=== PATIENT | female | born 1970 | race Caucasian/White ===

== ENCOUNTER 2016-05-24 20:24 | Inpatient (IN) | payer MEDICAID, OTHER ==
[~2016-05-24] VITALS: Ht 157.5 cm; Wt 51.7 kg
[~2016-05-24 20:24] MED LIST: CIPRO500 M1 PO; ENTERIC ASPIRI325 MG PO; FLAGYL500 M1 PO; LIPITOR40 MG PO; NORCO 325 MG-51 TAB PO; PAROXETINE20 M1 PO; PERCOCET 5/3251 TAB PO; PLAVIX75 MG PO; REGLAN10 MG PO; ZESTRIL20 M1 PO
[2016-05-24 20:47] VITALS: BP 107/76
--- NOTE | 2016-05-24 23:51 | NUR ---
TO ER BED 6
[2016-05-25] MEDS ORDERED: NACL 0.9% 1,000 ML IV ONE (00:22)
[2016-05-25] MEDS ORDERED: ONDANSETRON 4 MG/2 ML VIAL IVP ONE (00:25)
[2016-05-25] MEDS ORDERED: fentaNYL 0.05 MG/ML VIAL IVP ONE ×2 (00:25→02:40)
--- NOTE | 2016-05-25 00:37 | NUR ---
45Y F BIB SPOUSE C/O OF VAGINAL PAIN, W/ WHITE DISCHARGE STARTED YESTERDAY. ACCOMPANIED BY N/V. NO S/S OF RESP DISTRESS NOTED AT THIS MOMENT.
--- NOTE | 2016-05-25 00:58 | NUR ---
PT TAKEN TO CT SCAN
[2016-05-25] MEDS: NACL 0.9% 1,000 ML IV SCH ×3 (02:52→23:16)
[2016-05-25] MEDS ORDERED: ONDANSETRON 4 MG/2 ML VIAL IVP PRN (02:55)
[2016-05-25] MEDS ORDERED: ACETAMINOPHEN 325 MG TAB PO PRN (02:55)
[2016-05-25] MEDS ORDERED: diphenhydrAMINE 50 MG/ML VIAL IVP ONE (03:30)
--- NOTE | 2016-05-25 04:23 | NUR ---
Patient will be admitted to care of DR OWENS. Admited to TELEMETRY. Will go to room 115. Belongings list completed. Report to MINGO PEREZ.
[2016-05-25 04:33] VITALS: BP 129/76
--- NOTE | 2016-05-25 04:33 | NUR ---
PT VSS AT THIS TIME.
--- NOTE | 2016-05-25 04:42 | NUR ---
PT TRASFERRED TO MED SURG ROOM 115, BY MINGO PEREZ. PT STABLE, WITH VSS UPON TRASFER.
--- NOTE | 2016-05-25 04:45 | NUR ---
RECEIVED PT ONTO UNIT IN ROOM 115, PLACED PT ON ISOLATION FOR HX C.DIFF. PT IS A/O X4, NO ACUTE S/S OF DISTRESS. C.O. OF VAGINAL/PELVIC AND LOWER ABDOMINAL PAIN FOR 1 DAY WITH N/V. VSS. PT IS AFEBRILE, DENIES N/V AND OR CHEST PAIN AT THIS TIME. IV ACCESS TO LEFT FA #22G, PATENT AND INTACT W/ NS @100CC/HR. PT STATES TO HAVE PAIN AT THIS TIME, WILL SEE ORDERS. LUNG SOUNDS ARE CLEAR. PT HAS COLOSTOMY BAG IN PLACE AND INTACT NO DRAINAGE OR BOWEL MOVEMENT NOTED TO LEFT LOWER QUADRANT. ALL OTHER SKIN INTACT. DISCUSSED W/ PT PLAN OF CARE, VERBALIZED UNDERSTANDING. CALL LIGHT PLACED WITHIN EASY REACH. ORIENTED PT TO UNIT. WILL CONTINUE TO MONITOR PT.
[2016-05-25] MEDS: HYDROmorphone 1 MG/ML AMP IVP PRN ×5 (05:58→22:49)
--- NOTE | 2016-05-25 07:15 | NUR ---
STARTED NEW IV TO RT FA #22G, DISCONTINUED IV ACCESS TO LEFT FA DUE TO PT C.O. PAIN AT SITE. NO REDNESS OR SWELLING NOTED. CANNULA INTACT. PT REMAINS STABLE.
--- NOTE | 2016-05-25 07:30 | NUR ---
ENDORSED PT TO IAM AGUILA FOR CONTINUITY OF CARE, PT STABLE.
--- NOTE | 2016-05-25 07:31 | NUR ---
RECEIVED REPORT FROM NIGHT RN. PT RESTING IN BED. AAOX4. NO S/S OF ACUTE DISTRESS. PT DENIES PAIN. IV SITE PATENT AND INTACT. CALL LIGHT WITHIN REACH. SAFETY MEASURES ENSURED. WILL CONTINUE TO MONITOR.
[2016-05-25 07:50] VITALS: BP 125/79
[2016-05-25] MEDS: ENOXAPARIN 30 MG/0.3 ML SYR SUBQ SCH (08:40)
--- NOTE | 2016-05-25 10:01 | NUR ---
PT RESTING IN BED. NO S/S OF ACUTE DISTRESS. PT STATES PAIN /10. MEDICATED ORDERED. CALL LIGHT WITHIN REACH. WILL CONTINUE TO MONITOR.
--- NOTE | 2016-05-25 10:03 | NUR ---
PATIENT HAS BEEN SCREENED AND CATEGORIZED HIGH NUTRITION RISK. PATIENT WILL BE SEEN WITHIN 1-2 DAYS OF ADMISSION. 05/25/16-05/26/[address]
--- NOTE | 2016-05-25 12:04 | NUR ---
PT RESTING IN BED. NO S/S OF ACUTE DISTRESS. PT STATES PAIN IS REDUCED AND TOLERABLE. CALL LIGHT WITHIN REACH. SAFETY MEASURES ENSURED. WILL CONTINUE TO MONITOR.
--- NOTE | 2016-05-25 12:44 | NUR ---
CM NOTE PER [facility]OST PH# [phone], SEND REVIEWS TO [facility]. INITIAL REVIEW SENT TO [facility] FAX# [phone] ATTN: ANNAMARIE PH# [phone] EXT [phone]
--- NOTE | 2016-05-25 14:24 | NUR ---
PT RESTING IN BED. NO S/S OF ACUTE DISTRESS. PT STATES PAIN IS DECREASED AND TOLERABLE. CALL LIGHT WITHIN REACH. WILL CONTINUE TO MONITOR.
[2016-05-25 16:00] VITALS: BP 98/75
--- NOTE | 2016-05-25 17:30 | NUR ---
PT RESTING IN BED. NO S/S OF ACUTE DISTRESS. PT DENIES PAIN. CALL LIGHT WITHIN REACH. WILL CONTINUE TO MONITOR.
--- NOTE | 2016-05-25 19:30 | NUR ---
RECEIVED REPORT FROM DAY RN AT BEDSIDE, PATIENT IS AAOX4. PATIENT IS AMBULATORY. ON ROOM AIR, NO SOB OR SIGN OF DISTRESS. PATIENT HAS IV TO LFA #22 PATENT INTACT AND ASYMPTOMATIC. NOTED PATIENT HAS COLOSTOMY BAG TO LOWER LQ. SAFETY MEASURES CHECKED. DISCUSSED PLAN OF CARE WITH PATIENT, PATIENT VERBALIZED UNDERSTANDING, CALL LIGHT WITHIN REACH. WILL CONTINUE TO MONITOR.
--- NOTE | 2016-05-25 19:38 | NUR ---
ENDORSED PLAN OF CARE TO NIGHT RN. PT REMAINS IN STABLE CONDITION.
[2016-05-25 20:00] VITALS: BP 126/75
--- NOTE | 2016-05-25 21:30 | NUR ---
PATIENT SITTING UP IN BED, NO SIGN OF DISTRESS, CALL LIGHT WITHIN REACH. WILL CONTINUE TO MONITOR.
--- NOTE | 2016-05-25 23:00 | NUR ---
PATIENT C/O PAIN IN ABDOMEN, ADMINISTERED DILAUDED PER MD CHAPMAN, PATIENT TOLERATED WELL, CALL LIGHT WITHIN REACH. WILL CONTINUE TO MONITOR.
--- NOTE | 2016-05-26 00:20 | NUR ---
PATIENT RESTING IN BED ON PHONE, PROVIDED PATIENT WITH JELL0 AND ICE CHIPS, WILL CONTINUE TO MONITOR.
--- NOTE | 2016-05-26 02:09 | NUR ---
PATIENT SLEEPING, NO SOB OR SIGN OF DISTRESS, CALL LIGHT WITHIN REACH. WILL CONTINUE TO MONITOR.
[2016-05-26 04:00] VITALS: BP 127/77
--- NOTE | 2016-05-26 04:30 | NUR ---
PATIENT SLEEPING, VITAL SIGNS STABLE, NO SOB OR SIGN OF DISTRESS, CALL LIGHT WITHIN REACH. WILL CONTINUE TO MONITOR.
[2016-05-26] MEDS: HYDROmorphone 1 MG/ML AMP IVP PRN ×5 (05:56→21:33)
--- NOTE | 2016-05-26 07:20 | NUR ---
ENDORSED PATIENT TO DAY RN AT BEDSIDE, PATIENT IN STABLE CONDITION
--- NOTE | 2016-05-26 07:21 | NUR ---
RECEIVED REPORT AT BEDSIDE FOR CONTINUITY OF CARE. PT IS ALERT AND ORIENTED. I INTRODUCED MYSELF AND UPDATED THE BOARD. PT HAS BEEN HERE BEFORE, I HAD TAKEN CARE OF HER. SHE STATED HER CANCER IS BACK AND IS CURRENTLY ON CHEMO AND SHE HAS BEEN IN AND OUT OF THE HOSPITAL. PT HAS NO COMPLAINTS AT THIS TIME. PT IS MS. PT'S SKIN IS INTACT EXCEPT THE COLOSTOMY BAG ON HE L QUAD OF ABD. PT'S IV IS R FA 22G, NS AT 100ML. IT IS INTACT AND DRY AND PATENT. WILL BE BACK TO ASSESS PT FURTHER. CALL LIGHT WITHIN REACH. ALL SAFETY MEASURES IN PLACE.
--- NOTE | 2016-05-26 07:45 | NUR ---
V/S WITHIN NORMAL RANGE. SHE DID EXPLAIN THAT SHE HAD MENTIONED TO THE CLAIMS ADJUSTER NURSE ABOUT SWITCHING HER BENADRYL TO IV INSTEAD OF PO. IT WORKS BETTER AND FASTER FOR HER SIDE EFFECT OF CHEMO. WHEN DR. JUAN COMES, I WILL ASK. WILL BE BACK TO CHECK ON PT AND BRING HER MORNING MEDS. ALL SAFETY MEASURES IN PLACE.
[2016-05-26] MEDS: NACL 0.9% 1,000 ML IV SCH ×3 (08:52→22:15)
[2016-05-26] MEDS: ENOXAPARIN 30 MG/0.3 ML SYR SUBQ SCH (08:56)
--- NOTE | 2016-05-26 09:02 | NUR ---
ADMINISTERED MORNING MEDS. PT TOLERATED WELL. NO OTHER COMPLAINTS. CALL LIGHT WITHIN REACH. WILL CONTINUE TO MONITOR PT.
--- NOTE | 2016-05-26 10:05 | NUR ---
PT IS DOING WELL. RESTING COMFORTABLY. COLORING. NO PAIN AT THIS TIME. ALL SAFETY MEASURES IN PLACE. WILL CONTINUE TO MONITOR PT.
--- NOTE | 2016-05-26 11:05 | NUR ---
CM NOTE CONCURRENT REVIEW SENT TO [facility] FAX# [phone] ATTN: ANNAMARIE # [phone] EXT [phone]
--- NOTE | 2016-05-26 11:47 | NUR ---
ADMINISTERED ZOFRAN FOR NAUSEA. PT TOLERATED WELL. WILL CONTINUE TO MONITOR PT.
--- NOTE | 2016-05-26 12:16 | NUR ---
05/26/16 RD INITIAL ASSESSMENT COMPLETED PLEASE REFER TO NUTRITION ASSESSMENT UNDER CARE ACTIVITY FOR ESTIMATED NUTRITIONAL NEEDS. RD RECOMMENDATIONS: 1. CONTINUE CLEAR LIQUID DIET TOLERATED PER MD 2. WHEN MEDICALLY APPROPRIATE CONSIDER ADVANCE DIET TOLERATED TO SOFT AND IF PT CONTINUES TO TOLERATE DIET, CONSIDER REGULAR DIET. 3. RD WILL F/U 3-5 DAYS; MODERATE RISK. JUAN MANUEL RAMOS RD
--- NOTE | 2016-05-26 13:26 | NUR ---
ADMINISTERED DILAUDID FOR PAIN. PAIN LEVEL IS 9/10. PT TOLERATED WELL. WILL FOLLOW UP REGARDING SADE AND DR. WILL CONSULT.
--- NOTE | 2016-05-26 14:10 | NUR ---
SPOKE TO DR. WILL REGARDING CONSULT. STATED THAT HE WILL BE IN SOON TO SEE HER.
[2016-05-26] MEDS: diphenhydrAMINE 50 MG/ML VIAL IVP PRN ×2 (15:07→21:07)
[2016-05-26 16:00] VITALS: BP 100/64
--- NOTE | 2016-05-26 16:00 | NUR ---
V/S WITHIN NORMAL RANGE. PT IS RESTING, WATCHING TV. NO COMPLAINTS AT THIS TIME. WILL CONTINUE TO MONITOR PT.
--- NOTE | 2016-05-26 17:30 | NUR ---
ADMINISTERED HER PAIN MEDS. PT TOLERATED WELL. PT'S NEW IV IS IN HER L HAND 22G. FLUSHED AND ADMINISTERED HER IV INFUSION. DINNER IS HERE. PLACED HER CLEAR LIQUID DIET TRAY ON TABLE. ALL SAFETY MEASURES IN PLACE. WILL CONTINUE TO MONITOR PT.
--- NOTE | 2016-05-26 19:10 | NUR ---
ENDORSED PT TO THE CONSULTING PRACTICE MANAGER NURSE AT BEDSIDE FOR CONTINUITY OF CARE. PT IS IN GOOD SPIRITS. NO COMPLAINTS. NO SIGNS OF DISTRESS.
--- NOTE | 2016-05-26 19:28 | NUR ---
RECEIVED REPORT FROM MINGO ALEMAN, AT BEDSIDE. INITIAL ASSESSMENT AND BODY CHECK DONE. PATIENT AAO X 4, ABLE TO FOLLOW COMMAND AND MAKE NEEDS KNOWN AND AMBULATORY BY SELF WITH STEADY GAIT. PATIENT CURRENTLY SITING UP ON THE BED AND TALKING TO FAMILY. NO S/S OF DISTRESS OR SOB NOTED. PATIENT STILL C/O ABDOMINAL PAIN AND ITCHING AT THIS TIME. SKIN WARM/DRY TO TOUCH AND INTACT. NOTED PATIENT HAS LT SIDED COLOSTOMY WITH BEEFY RED/MOIST STOMA. DISCUSSED PLAN OF CARE, PAIN MANAGEMENT AND MEDICATION REGIMEN WITH PATIENT AND PATIENT VERBALIZED UNDERSTANDING. PLACED PATIENT ON SAFETY PRECAUTIONS AND CONTACT ISOLATION. WILL CONTINUE TO MONITOR AND CALL LIGHT LEFT WITHIN REACH.
[2016-05-26 20:00] VITALS: BP 101/67
--- NOTE | 2016-05-26 21:30 | NUR ---
SPOKE TO DR. WILL OVER THE PHONE. DR. WILL MADE AWARE OF SIGN INSTALLER AND UPDATED ON PATIENT'S CONDITION AND CURRENT LAB/CT RESULTS. NO NEW ORDER GIVEN.
--- NOTE | 2016-05-26 22:05 | NUR ---
ADMINISTERED PRN MEDICATIONS FOR PAIN AND ITCHINESS MD'S ORDERED WITH EDUCATION GIVEN. PATIENT COMPLYING WITH MEDICATIONS AND STATED WITH SOME RELIEF AFTER POST-MEDICATION. ALL NEEDS ARE ATTENDED. KEPT PATIENT IN COMFORTABLE POSITION/WARM AND WILL CONTINUE TO MONITOR.
[2016-05-27 00:03] VITALS: BP 98/55
--- NOTE | 2016-05-27 00:22 | NUR ---
PATIENT RESTED COMFORTABLY IN BED WITH STABLE CONDITION. WILL CONTINUE TO MONITOR.
[2016-05-27] MEDS: HYDROmorphone 1 MG/ML AMP IVP PRN ×5 (01:31→18:26)
--- NOTE | 2016-05-27 02:30 | NUR ---
ROUNDS MADE, SEEN PATIENT ASLEEP QUIETLY IN BED WITH EVEN AND UNLABORED RESPIRATORY RATE. PAIN SYMPTOM HAS BEEN STABILIZED AND UNDER CONTROL. WILL CONTINUE TO MONITOR.
[2016-05-27] MEDS: diphenhydrAMINE 50 MG/ML VIAL IVP PRN ×3 (03:02→14:25)
--- NOTE | 2016-05-27 07:14 | NUR ---
ENDORSED PLAN OF CARE TO MINGO ALEMAN, AT BEDSIDE. PATIENT RESTED WELL THROUGHOUT THE SHIFT AND REMAINED IN STABLE CONDITION. NO APPARENT DISTRESS NOTED.
--- NOTE | 2016-05-27 07:15 | NUR ---
RECEIVED PT REPORT FROM THE MOTOR ASSEMBLER NURSE AT BEDSIDE FOR CONTINUITY OF CARE. SHE IS AWAKE AND ORIENTED. REINTRODUCED MYSELF. UPDATED THE BOARD. SHE IS RESTING COMFORTABLY. NOTED THE IV ON THE L HAND 22G AT 100MLS/HR. PT HAD NO OTHER COMPLAINTS. SHE IS WAITING PATIENTLY FOR HER BENADRYL THAT IS DUE AROUND 0900. WILL BE BACK TO REASSESS PT. ALL SAFETY MEASURES IN PLACE.
--- NOTE | 2016-05-27 07:40 | NUR ---
V/S WITHIN NORMAL RANGE. NO OTHER COMPLAINTS. COLOSTOMY BAG IS INTACT AND DRY. STILL ITCHY. WAITING FOR HER BENADRYL. WILL CHECK ON TIME AND BRING MORNING MEDS. CALL LIGHT WITHIN REACH.
[2016-05-27 08:00] VITALS: BP 114/69
[2016-05-27] MEDS: ENOXAPARIN 30 MG/0.3 ML SYR SUBQ SCH (09:01)
[2016-05-27] MEDS: NACL 0.9% 1,000 ML IV SCH (09:02)
--- NOTE | 2016-05-27 09:05 | NUR ---
ADMINISTERED MORNING MEDS. PT TOLERATED THEM VERY WELL. EXPLAINED THE DAY TO HER. AFTER CONSULT WITH DR. WILL, IF HE CLEARS HER TODAY, PER DR. JUAN SHE MAY BE DISCHARGED. WE WILL AWAIT DR. WILL.
--- NOTE | 2016-05-27 09:30 | NUR ---
DR. WILL WAS HERE. SAW PT AND ASSESS HER. HE ALSO REVIEWED THE RADIOLOGY IMAGES. HE IS OK FOR HER TO BE DC'D. INCREASED DIET. WILL SEE WHAT TIME SHE WOULD LIKE TO BE DC'D.
--- NOTE | 2016-05-27 11:00 | NUR ---
PT RESTING IN BED, WATCHING TV. WOULD LIKE TO SOME ICE CHIPS. BROUGHT HER A CUP. NO OTHER COMPLAINTS. WILL CONTINUE TO MONITOR PT.
--- NOTE | 2016-05-27 11:07 | NUR ---
CM NOTE CONCURRENT REVIEW SENT TO [facility] FAX# [phone] ATTN: ANNAMARIE # [phone] EXT [phone]
--- NOTE | 2016-05-27 13:18 | NUR ---
PT SLEEPING SOUNDLY. NO DISTRESS NOTED. ALL SAFETY MEASURES IN PLACE. WILL CONTINUE TO MONITOR PT.
--- NOTE | 2016-05-27 14:25 | NUR ---
ADMINISTERED PAIN MED AND BENADRYL AT THE SAME TIME. PT TOLERATED WELL. WILL CONTINUE TO MONITOR PT.
--- NOTE | 2016-05-27 16:15 | NUR ---
CHECKED ON PT. PT IS RESTING COMFORTABLY. WILL CONTINUE MONITOR PT.
--- NOTE | 2016-05-27 16:50 | NUR ---
PT REFUSED THE WHEELCHAIR. I DC'D THE IV, CANNULA INTACT. PT HAS ALL HER PERSONAL BELONGINGS AND HER DC PACKET AND WE ALL WALKED OUT TOGETHER TO THE LOBBY. PT STABLE.
[2016-05-27 16:56] VITALS: BP 105/68
--- NOTE | 2016-05-27 18:00 | NUR ---
GAVE DISCHARGE INSTRUCTIONS. ANSWERED ALL QUESTIONS. PT SIGNED THE APPROPRIATE PAPERS. PT WILL GET DRESSED AND WILL WAIT FOR HER TO PICK HER UP. WILL CONTINUE TO MONITOR.
== END 2016-05-27 18:50 | disposition home or self-care (01) | DRG 240 ==
LOC: MED 20:24 → MTU 05-25 02:57
PROVIDERS: ADMIT Hospitalist; ATTEND Hospitalist
DX: C18.9 Malignant neoplasm of colon, unspecified (principal); N39.0 Urinary tract infection, site not specified; I10 Essential (primary) hypertension; D63.8 Anemia in other chronic diseases classified elsewhere; E78.5 Hyperlipidemia, unspecified; N85.8 Other specified noninflammatory disorders of uterus; Z93.3 Colostomy status; Z90.721 Acquired absence of ovaries, unilateral; Z88.6 Allergy status to analgesic agent; Z88.2 Allergy status to sulfonamides

== ENCOUNTER 2016-06-21 21:14 | Emergency (ER) | payer MEDICAID ==
[~2016-06-21] VITALS: Ht 157.5 cm; Wt 54.4 kg
[2016-06-21 21:33] VITALS: BP 149/97
--- NOTE | 2016-06-21 22:29 | NUR ---
TO ER BED 8
--- NOTE | 2016-06-21 22:35 | NUR ---
45 Y/O HERE W/C/O HEADACHES, AND R KNEE PAIN R/T TUMMOR. PER PT SHE HAS CHRONIC PAIN, SHE WAS DIAGNOSED WITH BRAIN TUMOR, AND R KNEE TUMMOR, THERE IS CONSTANTLY IN CONTINUES PAIN. NO S/S OF DISTRESS NOTED, ER MD AWARED OF VSS, AND PT'S CONDITION.
[2016-06-21] MEDS ORDERED: NACL 0.9% 1,000 ML IV ONE (22:49)
[2016-06-21] MEDS ORDERED: diphenhydrAMINE 50 MG/ML VIAL IVP ONE (22:50)
[2016-06-21] MEDS ORDERED: HYDROmorphone 1 MG/ML AMP IVP ONE (22:50)
[2016-06-21] MEDS ORDERED: METOCLOPRAMIDE 10 MG/2 ML INJ VIAL IVP ONE (22:50)
--- NOTE | 2016-06-22 00:05 | NUR ---
PT RESTING, NO S/S OF DISTRESS NOTED AT THE MOMENT.
[2016-06-22] MEDS ORDERED: HYDROmorphone 1 MG/ML AMP IVP ONE (00:30)
[2016-06-22 01:00] VITALS: BP 127/85
--- NOTE | 2016-06-22 01:00 | NUR ---
Patient discharged with v/s stable. Written and verbal after care instructions given and explained. Patient alert, oriented and verbalized understanding of instructions. Ambulatory with steady gait. All questions addressed prior to discharge. ID band removed. Patient advised to follow up with PMD OR RETURN TO ER IF CONDITION WORSENS. Rx of REGLAND, AND FIORICET given. Patient educated on indication of medication including possible reaction and side effects. Opportunity to ask questions provided and answered.
== END 2016-06-22 01:00 | disposition home or self-care (01) ==
LOC: MED 21:14
DX: R51 Headache (principal); I10 Essential (primary) hypertension; Z85.841 Personal history of malignant neoplasm of brain; Z88.6 Allergy status to analgesic agent
CPT/HCPCS: 70450; 81025; 96361; 96374; 96375; 96376; 99284; J1170; J1200; J2765; J7030

== ENCOUNTER 2016-08-13 10:19 | Emergency (ER) | payer MEDICAID ==
[~2016-08-13] VITALS: Ht 157.5 cm; Wt 59.0 kg
[~2016-08-13 10:19] MED LIST changes: +ATOR40TA PO; -CIPRO500 M1 PO; -ENTERIC ASPIRI325 MG PO; -FLAGYL500 M1 PO; -LIPITOR40 MG PO; +LISI-420 PO; +METO-460 PO; -NORCO 325 MG-51 TAB PO; +OXYC1TAB PO; +PARO-42 PO; -PAROXETINE20 M1 PO; -PERCOCET 5/3251 TAB PO; -PLAVIX75 MG PO; -REGLAN10 MG PO; -ZESTRIL20 M1 PO
[2016-08-13 10:28] VITALS: BP 145/82
--- NOTE | 2016-08-13 15:02 | NUR ---
Patient ambulated to bed 7.
--- NOTE | 2016-08-13 15:14 | NUR ---
46/F presents to ED with complaints of facial pain x2 days, worsening this morning. Patient c/o pressure, severe, 10/10 pain. Family member at bedside states "Her chin area is swollen. She's usually very thin." Patient is AOX4, ambulates with steady gait. Pt also c/o fever or and off. Pt also reports a rash to left shoulder and back area for the past 2 weeks. Patient also has complaints of N/V. VSS.
--- NOTE | 2016-08-13 15:37 | NUR ---
Patient being evaluated by physician at bedside.
[2016-08-13] MEDS ORDERED: fentaNYL 0.05 MG/ML VIAL IM ONE (15:45)
[2016-08-13] MEDS ORDERED: ONDANSETRON 4 MG ODT PO ONE (15:45)
[2016-08-13] MEDS ORDERED: diphenhydrAMINE 50 MG/ML VIAL IM ONE (15:45)
[2016-08-13 16:35] VITALS: BP 168/99
--- NOTE | 2016-08-13 16:35 | NUR ---
Patient discharged with v/s stable. Written and verbal after care instructions given and explained. Patient alert, oriented and verbalized understanding of instructions. Wheel Chair Assisted with to home. All questions addressed prior to discharge. ID band removed. Patient advised to follow up with PMD. Rx of ZOFRAN,PREDNISONE given. Patient educated on indication of medication including possible reaction and side effects. Opportunity to ask questions provided and answered.
--- NOTE | 2016-08-13 16:35 | NUR ---
Chart checked and completed. The patient's care was reviewed and supervised by Jesus Mohamud RN.
== END 2016-08-13 16:35 | disposition home or self-care (01) ==
LOC: MED 10:19
DX: T78.40XA Allergy, unspecified, initial encounter (principal); R21 Rash and other nonspecific skin eruption; R51 Headache; Z88.2 Allergy status to sulfonamides; Z88.8 Allergy status to other drugs, medicaments and biological substances; Z85.828 Personal history of other malignant neoplasm of skin; Z85.038 Personal history of other malignant neoplasm of large intestine; Z85.841 Personal history of malignant neoplasm of brain; X58.XXXA Exposure to other specified factors, initial encounter
CPT/HCPCS: 96372; 99284; J1200; J3010; S0119

== ENCOUNTER 2016-12-06 15:46 | Emergency (ER) | payer MEDICAID ==
[~2016-12-06] VITALS: Ht 157.5 cm; Wt 59.9 kg
[2016-12-06 15:49] VITALS: BP 133/83
[2016-12-06] MEDS ORDERED: METOCLOPRAMIDE 10 MG/2 ML INJ VIAL IVP ONE (16:10)
[2016-12-06] MEDS ORDERED: KETOROLAC 30 MG/ML VIAL IVP ONE (16:10)
[2016-12-06] MEDS ORDERED: HYDROmorphone 1 MG/ML AMP IVP ONE (16:15)
[2016-12-06 16:45] LABS: HEMOGLOBIN 11.4 g/dL (12.0-16.0)
[2016-12-06 16:50] LABS: BASOPHILS # (AUTO) 0.9 K/uL (0.00-0.22); EOSINOPHILS # (AUTO) 0.7 K/uL (0-0.4); HEMATOCRIT 36.3 % (36-48); MEAN CORPUSCULAR HEMOGLOBIN 24 pg (27-31); MEAN CORPUSCULAR HGB CONC 31 g/dL (33-37); MEAN CORPUSCULAR VOLUME 75 fL (80-94); MONOCYTES # (AUTO) 0.6 K/uL (0.8-1.0); NEUTROPHILS # (AUTO) 7.1 K/uL (1.8-7.7); PLATELET COUNT (AUTO) 500 K/uL (140-450); RED BLOOD CELL COUNT(AUTO) 4.83 MIL/uL (4.20-5.40); WHITE BLOOD COUNT (AUTO) 11.3 K/uL (4.8-10.8)
[2016-12-06] MEDS ORDERED: predniSONE 20 MG TAB PO ONE (16:50)
[2016-12-06] MEDS ORDERED: diphenhydrAMINE 50 MG/ML VIAL IVP ONE (16:50)
[2016-12-06 16:55] LABS: ANION GAP 13.4 (8-16); CARBON DIOXIDE 26.4 mmol/L (21-32); CREATININE 0.8 mg/dL (0.6-1.3); POTASSIUM 3.8 mmol/L (3.5-5.1)
[2016-12-06 17:01] LABS: ALBUMIN 3.8 g/dL (3.4-5.0); TOTAL BILIRUBIN 0.3 mg/dL (0.0-1.0)
[2016-12-06 17:37] VITALS: BP 145/89
== END 2016-12-06 17:34 | disposition home or self-care (01) ==
LOC: MED 15:46
DX: G43.909 Migraine, unspecified, not intractable, without status migrainosus (principal); T78.40XA Allergy, unspecified, initial encounter; R05 Cough; I10 Essential (primary) hypertension; C18.9 Malignant neoplasm of colon, unspecified; C44.90 Unspecified malignant neoplasm of skin, unspecified; C40.20 Malignant neoplasm of long bones of unspecified lower limb; C71.9 Malignant neoplasm of brain, unspecified; Z79.899 Other long term (current) drug therapy; Z88.5 Allergy status to narcotic agent; Z88.6 Allergy status to analgesic agent; X58.XXXA Exposure to other specified factors, initial encounter
CPT/HCPCS: 36415; 80053; 85025; 96374; 96375; 99284; J1170; J1200; J2765; J7512

== ENCOUNTER 2016-12-22 00:15 | Inpatient (IN) | payer MEDICAID ==
[~2016-12-22] VITALS: Ht 157.5 cm; Wt 59.0 kg
--- NOTE | 2016-12-22 00:15 | NUR ---
Patient was BIBA and taken to bed 07.
[2016-12-22 00:17] VITALS: BP 146/102
--- NOTE | 2016-12-22 00:20 | NUR ---
PATIENT PRESENTS TO ED WITH C/O RECTAL BUTTOCK PAIN X2 DAYS, + N/V PT SKIN IS PINK/WARM/DRY; AAOX4 WITH EVEN AND STEADY GAIT; LUNGS CLEAR BL; HR EVEN AND REGULAR; PT DENIES ANY FEVER, CP, SOB, OR COUGH AT THIS TIME; PATIENT STATES PAIN OF 10/10 AT THIS TIME; VSS; PATIENT POSITIONED FOR COMFORT; HOB ELEVATED; BEDRAILS UP X2; BED DOWN. ER MD MADE AWARE OF PT STATUS.
--- NOTE | 2016-12-22 00:34 | NUR ---
Dr. Burgos evaluating patient at bedside.
[2016-12-22] MEDS ORDERED: NACL 0.9% 1,000 ML IV ONE (00:40)
[2016-12-22] MEDS ORDERED: ONDANSETRON 4 MG/2 ML VIAL IVP ONE ×2 (00:40→02:10)
[2016-12-22 00:54] LABS: BASOPHILS # (AUTO) 0.1 K/uL (0.00-0.22); BASOPHILS % (AUTO) 1.4 % (0.0-2.0); EOSINOPHILS # (AUTO) 0.2 K/uL (0-0.4); EOSINOPHILS % (AUTO) 2.7 % (0.0-4.0); HEMOGLOBIN 10.6 g/dL (12.0-16.0); LYMPHOCYTES # (AUTO) 2.4 K/uL (2.5-16.5); LYMPHOCYTES % (AUTO) 26.8 % (20.5-51.1); MEAN CORPUSCULAR HEMOGLOBIN 23 pg (27-31); MEAN CORPUSCULAR HGB CONC 31 g/dL (33-37); MEAN CORPUSCULAR VOLUME 74 fL (80-94); MONOCYTES # (AUTO) 0.6 K/uL (0.8-1.0); MONOCYTES % (AUTO) 6.6 % (1.7-9.3); NEUTROPHILS # (AUTO) 5.5 K/uL (1.8-7.7); NEUTROPHILS % (AUTO) 62.5 % (42.2-75.2); PLATELET COUNT (AUTO) 591 K/uL (140-450); RED CELL DISTRIBUTION WIDTH 18.7 % (11.6-13.7); WHITE BLOOD COUNT (AUTO) 8.8 K/uL (4.8-10.8)
[2016-12-22 01:09] LABS: ANION GAP 9.5 (8-16); CARBON DIOXIDE 30.7 mmol/L (21-32); CREATININE 0.6 mg/dL (0.6-1.3); POTASSIUM 3.2 mmol/L (3.5-5.1)
[2016-12-22 01:15] LABS: ALBUMIN 3.8 g/dL (3.4-5.0); TOTAL BILIRUBIN 0.2 mg/dL (0.0-1.0)
[2016-12-22] MEDS ORDERED: HYDROmorphone 1 MG/ML AMP IVP ONE ×2 (01:20→02:50)
[2016-12-22] MEDS ORDERED: POTASSIUM CHLORIDE 20% 40 MEQ/15 ML UDC PO ONE (01:20)
--- NOTE | 2016-12-22 01:26 | NUR ---
Patient being taken to CT via wheelchair per tech.
--- NOTE | 2016-12-22 01:28 | NUR ---
PT TO CT VIA WC IN STABLE CONDITION
--- NOTE | 2016-12-22 01:38 | NUR ---
[facility]
[2016-12-22 01:47] LABS: APPEARANCE,URINE CLOUDY (CLEAR); BILIRUBIN,URINE NEGATIVE (NEGATIVE); BLOOD, URINE TRACE-I (NEGATIVE); COLOR,URINE YELLOW (YELLOW); LEUKOCYTE ESTERASE ,URINE NEGATIVE (NEGATIVE); NITRITE, URINE NEGATIVE (NEGATIVE); PH,URINE 6.5 (5.0-9.0); UGLUCOSE NEGATIVE (NEGATIVE)
[2016-12-22 01:58] LABS: RBC,URINE 0-5 (RARE) /HPF (0-5); URINE AMORPHOUS URATE 4+ /HPF (None Seen); WBC,URINE 0-5 (RARE) /HPF (0-5)
--- NOTE | 2016-12-22 02:02 | NUR ---
NADR AT THIS TIME. PT C/O OF MILD NAUSEA. ER MD NOTIFTED, ALL ORDER EXECUTED.
[2016-12-22] MEDS ORDERED: NACL 0.9% 1,000 ML IV SCH (02:59)
[2016-12-22] MEDS ORDERED: oxyCODONE/APAP 5/325 MG 1 TAB TAB PO PRN (03:00)
[2016-12-22] MEDS ORDERED: cloNIDine 0.1 MG TAB PO PRN (03:00)
[2016-12-22] MEDS ORDERED: LORazepam 2 MG/ML VIAL IVP PRN (03:00)
[2016-12-22] MEDS ORDERED: HYDROmorphone 1 MG/ML AMP IVP PRN ×2 (03:00)
[2016-12-22] MEDS ORDERED: HYDROmorphone 2 MG TAB PO PRN (03:00)
[2016-12-22] MEDS ORDERED: ONDANSETRON 4 MG/2 ML VIAL IVP PRN (03:00)
--- NOTE | 2016-12-22 03:19 | NUR ---
Patient will be admitted to care of DR VALENCIA. Admited to Med/Surg. Will go to room 113. Belongings list completed. Report to SHERRY.
[2016-12-22 03:25] VITALS: BP 113/60
--- NOTE | 2016-12-22 03:25 | NUR ---
Admitted from ER TO MED SURGICAL UNIT, with chief complaint of PAIN IN THE RECTUM STARTED THREE DAYS AGO, PAIN DESCRIBED 9/10, NON-RADIATING, CONTINUOS, DECREASED BY TAKING 2 TABS OF PERCOCET. 46 y/o ,Female, Cooperative, AWAKE, A/OX4, RESPIRATION EVEN AND UNLABORED ABDOMEN SOFT, WITH COLOSTOMY BAG DRAINING BROWNISH PASTY STOOLS, MODERATE AMOUNT. HEAD TO ASSESSMENT DONE WITH MINGO CAVANAUGH. NOTED BROKEN NAIL, LEFT BIG TOE. NO BRUISING OR OPEN WOUNDS. PATIENT ON CHEMOTHERAPY, HAD THREE SESSIONS ALREADY, LAST CHEMO IS LAST WEEK. DENIES PAIN 0/10 oriented to call light, bed, phone,television, bathroom, smoking policy,visiting hours, procedures, ID bracelet on. Belongings list checked.
--- NOTE | 2016-12-22 03:30 | NUR ---
Patient's Plan of Care was discussed and reviewed with CUSTOMER MARKETING INTERN: KAMAR LOWRY
--- NOTE | 2016-12-22 07:10 | NUR ---
ASSUMED CONTINUITY OF CARE. NO SIGNS AND SYMPTOMS OF ACUTE DISTRESS NOTED. INITIAL ASSESSMENT DONE. KEEP COMFORTABLE ON BED. EXPLAINED DIAGNOSIS, PLAN OF CARE, PAIN MANAGEMENT TEACHING, COLOSTOMY CARE, USE OF CALL LIGHT/BED/TV/BATHROOM. VERBALIZED UNDERSTANDING. CALL LIGHT WITHIN REACH.
--- NOTE | 2016-12-22 07:10 | NUR ---
ENDORSED TO BARBARA PITTS FOR CONTINUITY OF CARE.
[2016-12-22 08:00] VITALS: BP 114/64
--- NOTE | 2016-12-22 08:00 | NUR ---
Patient's Plan of Care was discussed and reviewed with RESERVOIR ENGINEERING ADVISOR: GISSELLE Rodgers
--- NOTE | 2016-12-22 08:16 | NUR ---
PT STATES 01/18 PAIN. PT REQUEST DILAUDID IVP BE GIVEN BECAUSE "TABLETS DON'T SEEM TO WORK FOR ME".
--- NOTE | 2016-12-22 08:43 | NUR ---
PATIENT HAS BEEN SCREENED AND CATEGORIZED HIGH NUTRITION RISK. PATIENT WILL BE SEEN WITHIN 1-2 DAYS OF ADMISSION. 12/22/16-12/23/[address]
--- NOTE | 2016-12-22 11:57 | NUR ---
CM NOTE INITIAL REVIEW FAXED TO [facility] [phone]
[2016-12-22 12:00] VITALS: BP 109/65
--- NOTE | 2016-12-22 13:00 | NUR ---
PT. TOLERATED REGULAR DIET. NO C/O N/V. INFORMED CHARGE NURSE.
--- NOTE | 2016-12-22 14:02 | NUR ---
12/22/16 RD INITIAL ASSESSMENT COMPLETED PLEASE REFER TO NUTRITION ASSESSMENT UNDER CARE ACTIVITY FOR ESTIMATED NUTRITIONAL NEEDS. 1. CONTINUE REGULAR DIET 2. RD TO FOLLOW UP WITHIN 2-3 DAYS; HIGH RISK HAIDER FERNANDEZ RD
--- NOTE | 2016-12-22 15:00 | NUR ---
EXPLAINED ABOUT MD D/C ORDER, D/C INSTRUCTIONS AND TEACHING, MD FOLLOW-UP, DISEASE MANAGEMENT, PAIN MANAGEMENT TEACHING, COLONOSCOPY CARE, DIET. VERBALIZED UNDERSTANDING.
[2016-12-22 17:00] VITALS: BP 109/70
--- NOTE | 2016-12-22 18:07 | NUR ---
D/C HOME VIA WHEELCHAIR WITH ASSISTANCE FROM AMY HESTER. AWAKE, ALERT, AND ORIENTED X4. SPEECH CLEAR. NO C/O PAIN. NO SOB, NOTED. IN STABLE CONDITION. INFORMED CHARGE NURSE IDA CARRILLO.
== END 2016-12-22 18:07 | disposition home or self-care (01) | DRG 240 ==
LOC: MED 00:15 → MTU 03:12
PROVIDERS: ADMIT Hospitalist; ATTEND Hospitalist
DX: C20 Malignant neoplasm of rectum (principal); C79.51 Secondary malignant neoplasm of bone; K62.89 Other specified diseases of anus and rectum; I10 Essential (primary) hypertension; E87.6 Hypokalemia; N13.30 Unspecified hydronephrosis; Z88.6 Allergy status to analgesic agent; E78.5 Hyperlipidemia, unspecified; F32.9 Major depressive disorder, single episode, unspecified; F41.9 Anxiety disorder, unspecified; Z85.820 Personal history of malignant melanoma of skin; Z93.3 Colostomy status; Z90.721 Acquired absence of ovaries, unilateral; Z90.49 Acquired absence of other specified parts of digestive tract; Z88.8 Allergy status to other drugs, medicaments and biological substances
CPT/HCPCS: 36415; 80053; 81001; 85025; 87081; 96361; 96374; 96375; 96376; 99285; J1170; J2405; J7030

== ENCOUNTER 2017-01-04 08:57 | Emergency (ER) | payer MEDICAID ==
[~2017-01-04] VITALS: Ht 157.5 cm; Wt 58.1 kg
[2017-01-04 09:11] VITALS: BP 127/90
--- NOTE | 2017-01-04 09:17 | NUR ---
PT PRESENTS TO ER FOR EVALUATION OF RASH TO FACE S/P CHEMO TX YESTERDAY. HX MELANOMA, HTN. SKIN IS PINK/WARM/DRY; AAOX4 WITH EVEN AND STEADY GAIT; LUNGS CLEAR BL; HR EVEN AND REGULAR; PT DENIES ANY FEVER, CP, SOB AT THIS TIME; PATIENT STATES PAIN OF 10/10 AT THIS TIME;PATIENT POSITIONED FOR COMFORT; HOB ELEVATED; BEDRAILS UP X2; BED DOWN. ALL MONITORS IN PLACED;ER MD MADE AWARE OF PT STATUS.
--- NOTE | 2017-01-04 09:24 | NUR ---
JAZMIN NASSAR AT BEDSIDE.
[2017-01-04] MEDS ORDERED: diphenhydrAMINE 50 MG CAP PO ONE (09:45)
[2017-01-04] MEDS ORDERED: diphenhydrAMINE 50 MG/ML VIAL IM ONE (09:50)
--- NOTE | 2017-01-04 10:18 | NUR ---
Patient discharged with v/s stable. Written and verbal after care instructions given and explained. Patient alert, oriented and verbalized understanding of instructions. Ambulatory with steady gait. All questions addressed prior to discharge. ID band removed. Patient advised to follow up with PMD. Rx of KETOCONAZOLE 2% TOPICAL CREAM;KETOCONAZOLE SHAMPOO AND HYDROCORTISONE given. Patient educated on indication of medication including possible reaction and side effects. Opportunity to ask questions provided and answered.
[2017-01-04 10:19] VITALS: BP 140/94
== END 2017-01-04 10:18 | disposition home or self-care (01) ==
LOC: MED 08:57
DX: L21.9 Seborrheic dermatitis, unspecified (principal); I10 Essential (primary) hypertension; Z79.899 Other long term (current) drug therapy; Z88.5 Allergy status to narcotic agent; Z88.2 Allergy status to sulfonamides; Z88.8 Allergy status to other drugs, medicaments and biological substances; Z85.820 Personal history of malignant melanoma of skin
CPT/HCPCS: 96372; 99283; J1200; Q0163

== ENCOUNTER 2017-01-15 16:27 | Emergency (ER) | payer MEDICAID, OTHER ==
[~2017-01-15] VITALS: Ht 157.5 cm; Wt 58.2 kg
[2017-01-15 16:29] VITALS: BP 121/80
--- NOTE | 2017-01-15 19:05 | NUR ---
PT TAKEN TO BED 4
--- NOTE | 2017-01-15 19:20 | NUR ---
Dr. Kuo evaluating patient at bedside.
[2017-01-15] MEDS ORDERED: HYDROmorphone 1 MG/ML AMP IVP ONE ×2 (19:25→21:55)
[2017-01-15] MEDS ORDERED: NACL 0.9% 1,000 ML IV ONE (19:25)
[2017-01-15] MEDS ORDERED: ONDANSETRON 4 MG/2 ML VIAL IVP ONE (19:25)
[2017-01-15 19:38] LABS: BASOPHILS # (AUTO) 0.4 K/uL (0.00-0.22); BASOPHILS % (AUTO) 3.9 % (0.0-2.0); EOSINOPHILS # (AUTO) 0.5 K/uL (0-0.4); EOSINOPHILS % (AUTO) 4.9 % (0.0-4.0); HEMATOCRIT 35.8 % (36-48); HEMOGLOBIN 11.2 g/dL (12.0-16.0); LYMPHOCYTES # (AUTO) 1.9 K/uL (2.5-16.5); LYMPHOCYTES % (AUTO) 18.4 % (20.5-51.1); MEAN CORPUSCULAR HEMOGLOBIN 23 pg (27-31); MEAN CORPUSCULAR HGB CONC 31 g/dL (33-37); MEAN CORPUSCULAR VOLUME 73 fL (80-94); MONOCYTES # (AUTO) 0.8 K/uL (0.8-1.0); NEUTROPHILS # (AUTO) 6.8 K/uL (1.8-7.7); NEUTROPHILS % (AUTO) 64.8 % (42.2-75.2); PLATELET COUNT (AUTO) 483 K/uL (140-450); RED BLOOD CELL COUNT(AUTO) 4.88 MIL/uL (4.20-5.40); RED CELL DISTRIBUTION WIDTH 17.5 % (11.6-13.7); WHITE BLOOD COUNT (AUTO) 10.4 K/uL (4.8-10.8)
[2017-01-15 19:44] LABS: ANION GAP 11.4 (8-16); CARBON DIOXIDE 29.3 mmol/L (21-32); CREATININE 0.7 mg/dL (0.6-1.3); POTASSIUM 3.7 mmol/L (3.5-5.1); TOTAL BILIRUBIN 0.3 mg/dL (0.0-1.0)
--- NOTE | 2017-01-15 20:11 | NUR ---
Consent for CT signed by patient, myself and Dr. Kuo.
--- NOTE | 2017-01-15 20:27 | NUR ---
Pt taken to CT via rjamie.
--- NOTE | 2017-01-15 20:37 | NUR ---
BIB C/O ABDOMINAL PAIN X1 WEEK ACCOMPANIED BY VOMITING AND DIARRHEA X2 DAYS. HX OF BONE CANCER, MELANOMA, HTN, HERNIA. BOWEL SOUNDS ACTIVE IN ALL 4 QUANDRANTS. COLOSTOMY BAG ON LEFT LOWER ABDOMEN. ABDOMEN IS SOFT AND TENDER ON PALPATION. C/O VOMITING SINCE YESTERDAY WITH 5 EPISODES TODAY. DIARRHEA SINCE YESTERDAY. LAST MENSTRUAL PERIOD JUNE 30, 2016. PAIN IN ABDOMEN RADIATES TO LOWER BACK. PATIENT AA&O X4. SKIN IS WARM AND DRY. PATIENT IS RELAXED IN BED RIGHT NOW WITH AT BEDSIDE. ALL NEEDS ADDRESSED AT THIS TIME.
[2017-01-15 20:53] LABS: APPEARANCE,URINE CLEAR (CLEAR); BILIRUBIN,URINE NEGATIVE (NEGATIVE); BLOOD, URINE TRACE-I (NEGATIVE); COLOR,URINE YELLOW (YELLOW); LEUKOCYTE ESTERASE ,URINE NEGATIVE (NEGATIVE); NITRITE, URINE NEGATIVE (NEGATIVE); UGLUCOSE NEGATIVE (NEGATIVE)
[2017-01-15 20:59] LABS: RBC,URINE 0-5 (RARE) /HPF (0-5); WBC,URINE 0-5 (RARE) /HPF (0-5)
--- NOTE | 2017-01-15 21:06 | NUR ---
RETURNED FROM CT. PLACED BACK IN BED 4.
[2017-01-15] MEDS ORDERED: diphenhydrAMINE 50 MG CAP PO ONE (21:10)
[2017-01-15 22:27] VITALS: BP 145/85
--- NOTE | 2017-01-15 22:27 | NUR ---
IV removed, catheter intact and site benign. Applied folded 4x4 gauze and tape to stop bleeding.
--- NOTE | 2017-01-15 22:27 | NUR ---
Patient discharged with v/s stable. Written and verbal after care instructions given and explained. Patient verbalized understanding. Ambulatory with steady gait. All questions addressed prior to discharge. Advised to follow up with PMD. ACCOMPANIED BY .
--- NOTE | 2017-01-15 23:15 | NUR ---
Sen harper in EDM - 01/15/17 at 2315 by PEPE Patient discharged with v/s stable. Written and verbal after care instructions given and explained. Patient verbalized understanding. Ambulatory with steady gait. All questions addressed prior to discharge. Advised to follow up with PMD.
== END 2017-01-15 22:27 | disposition home or self-care (01) ==
LOC: MED 16:27
DX: R10.30 Lower abdominal pain, unspecified (principal); R11.2 Nausea with vomiting, unspecified; Z85.038 Personal history of other malignant neoplasm of large intestine; Z88.5 Allergy status to narcotic agent; Z88.8 Allergy status to other drugs, medicaments and biological substances
CPT/HCPCS: 36415; 74177; 80053; 81001; 81025; 83690; 85025; 96361; 96374; 96375; 96376; 99285; J1170; J2405; J7030; Q0163; Q9967

== ENCOUNTER 2017-07-25 19:26 | Inpatient (IN) | payer OTHER ==
[~2017-07-25] VITALS: Ht 157.5 cm; Wt 48.1 kg
[2017-07-25 19:31] VITALS: BP 120/78
--- NOTE | 2017-07-25 19:34 | NUR ---
TO LOBBY VIA W/C , A/W BED, V/S DAVID , EMRE NOTED
[2017-07-25 20:37] LABS: BASOPHILS # (AUTO) 0.5 K/uL (0.00-0.22); EOSINOPHILS # (AUTO) 0.3 K/uL (0-0.4); HEMATOCRIT 32.4 % (36-48); HEMOGLOBIN 10.5 g/dL (12.0-16.0); LYMPHOCYTES # (AUTO) 3.1 K/uL (2.5-16.5); MEAN CORPUSCULAR HEMOGLOBIN 28 pg (27-31); MEAN CORPUSCULAR HGB CONC 32 g/dL (33-37); MEAN CORPUSCULAR VOLUME 86.8 fL (80-94); MONOCYTES # (AUTO) 0.9 K/uL (0.8-1.0); NEUTROPHILS # (AUTO) 5.1 K/uL (1.8-7.7); PLATELET COUNT (AUTO) 439 K/uL (140-450); RED BLOOD CELL COUNT(AUTO) 3.73 MIL/uL (4.20-5.40); RED CELL DISTRIBUTION WIDTH 13.2 % (11.6-13.7); WHITE BLOOD COUNT (AUTO) 9.9 K/uL (4.8-10.8)
[2017-07-25 20:58] LABS: ANION GAP 13.4 (8-16); CARBON DIOXIDE 24.8 mmol/L (21-32); CREATININE 0.6 mg/dL (0.6-1.3); POTASSIUM 4.2 mmol/L (3.5-5.1)
--- NOTE | 2017-07-25 21:04 | NUR ---
PATIENT TAKEN TO CT
[2017-07-25 21:10] LABS: ALBUMIN 3.4 g/dL (3.4-5.0); TOTAL BILIRUBIN 0.4 mg/dL (0.0-1.0)
--- NOTE | 2017-07-25 21:14 | NUR ---
PATIENT TO BED 12 VIA WHEELCHAIR
--- NOTE | 2017-07-25 21:15 | NUR ---
Sen harper in [facility] - 07/25/17 at 2115 by EUGENE PT RETURN FROM CT TO BED 12
--- NOTE | 2017-07-25 21:30 | NUR ---
PT C/O ABD PAIN, NV. PT SEEN LAST WEEK AND DIAGNOSED WITH GALL STONES. 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 PT AAOX4 WITH EVEN AND STEADY GAIT; LUNGS CLEAR BL; HR EVEN AND REGULAR; PT DENIES ANY FEVER, CP, SOB, OR COUGH AT THIS TIME; PATIENT STATES PAIN OF 10/10 AT THIS TIME; PATIENT POSITIONED FOR COMFORT; HOB ELEVATED; BEDRAILS UP X2; BED DOWN. ER MD MADE AWARE OF PT STATUS.
[2017-07-25] MEDS ORDERED: diphenhydrAMINE 50 MG/ML VIAL IVP ONE ×2 (22:00→23:25)
[2017-07-25] MEDS ORDERED: MORPHINE SULFATE 4 MG/ML SYR IVP ONE ×2 (22:00→23:15)
[2017-07-25] MEDS ORDERED: ONDANSETRON 4 MG/2 ML VIAL IVP ONE (22:20)
[2017-07-25] MEDS ORDERED: NACL 0.9% 1,000 ML IV ONE (22:25)
--- NOTE | 2017-07-25 22:30 | NUR ---
Ultrasound at bedside.
[2017-07-25] MEDS ORDERED: cefTRIAXone 1,000 MG VIAL ONE (23:25)
[2017-07-25] MEDS ORDERED: METOCLOPRAMIDE 10 MG TAB PO PRN (23:30)
[2017-07-25] MEDS ORDERED: ONDANSETRON 4 MG/2 ML VIAL IVP PRN (23:30)
[2017-07-25] MEDS ORDERED: MORPHINE SULFATE 4 MG/ML SYR IVP PRN (23:30)
[2017-07-25] MEDS ORDERED: MORPHINE SULFATE 2 MG/ML SYR IVP PRN (23:30)
[2017-07-25] MEDS ORDERED: LORazepam 2 MG/ML VIAL IVP PRN (23:30)
[2017-07-26] LABS: APPEARANCE,URINE CLEAR (CLEAR); COLOR,URINE STRAW (YELLOW)
[2017-07-26 00:01] LABS: BILIRUBIN,URINE NEGATIVE (NEGATIVE); BLOOD, URINE NEGATIVE (NEGATIVE); LEUKOCYTE ESTERASE ,URINE NEGATIVE (NEGATIVE); NITRITE, URINE NEGATIVE (NEGATIVE); PH,URINE 5.5 (5.0-9.0); UGLUCOSE NEGATIVE (NEGATIVE)
--- NOTE | 2017-07-26 00:05 | NUR ---
RECEIVED FROM ER PER PAUL AWAKE AND ALERT. NO SOB. PAIN PER PT. TOLERABLE AT THIS TIME. CALL LIGHT WITH IN REACH AND CARE PLANS FOR THE NIGHT DISCUSSED WITH HER. DX. OF UTI, INTRACTABLE NAUSEA AND VOMITING. HX. OF COLON CA. AFEBRILE. SKIN INTACT.
--- NOTE | 2017-07-26 00:17 | NUR ---
Report given and care transfered to Yolanda RN [email or web address]. Transfered via gurney with VSS.
[2017-07-26] MEDS: DEXT 5% / NACL 0.45% 1,000 ML IV SCH ×2 (00:39→13:38)
[2017-07-26 00:49] VITALS: BP 114/65
[2017-07-26] MEDS ORDERED: MORPHINE SULFATE 4 MG/ML SYR IVP PRN ×3 (01:50→11:05)
--- NOTE | 2017-07-26 01:52 | NUR ---
PT. ASKING FOR PAIN MEDICATION AND MD SURESH GAVE NEW ORDERS FOR PAIN. PT. STATED THAT SHE JUST HAVE HEADACHE WITH MORPHINE IVP REACTION BUT SHE NEEDS IT WITH BENADRYL IVP TOO. STATED" I AM OK WITH MORPHINE".
[2017-07-26] MEDS ORDERED: MORPHINE SULFATE 4 MG/ML SYR ONE (02:12)
[2017-07-26] MEDS ORDERED: diphenhydrAMINE 12.5 MG/5 ML UDC ONE (03:08)
[2017-07-26] MEDS: diphenhydrAMINE 12.5 MG/5 ML UDC PO PRN ×4 (03:13→23:41)
--- NOTE | 2017-07-26 03:17 | NUR ---
CHECKED ON PT. AND SHE IS SLEEPING. NO RESTLESSNESS NOTED. CALL LIGHT WITH IN REACH.
--- NOTE | 2017-07-26 07:20 | NUR ---
ENDORSED TO THE NEXT RN FOR CONTINUITY OF CARE. NO SOB. ABLE TO VERBALIZE NEEDS WELL. MEDICAL SURGICAL PT.
--- NOTE | 2017-07-26 07:20 | NUR ---
RECEIVED REPORT FROM NIGHTSHIFT NURSE AT BEDSIDE. PATIENT ALERT AND ORIENTED X4. PATIENT HAS A PICC LINE ON HER RIGHT UPPER ARM. PATIENT HAS D5 0.45 NS RUNNING AT 75 ML/HR. NO RESPIRATORY DISTRESS NOTED AT THIS TIME. RECEIVED INSTRUCTION FROM NIGHTSHIFT NURSE TO FOLLOW UP ON PAIN MEDICATIONS FOR PATIENT. ASKED PATIENT WHAT KIND OF ALLERGIC REACTION SHE GETS FROM MORPHINE. PATIENT SAYS, "I GET A SEVERE HEADACHE WHEN I RECEIVE MORPHINE. I USUALLY TAKE IT WITH BENADRYL". UPDATED BOARD IN PATIENT'S ROOM AND LOWERED BED TO LOWEST SETTING. ENCOURAGED PATIENT TO CALL IF SHE NEEDS ANYTHING. WILL CONTINUE TO MONITOR PATIENT.
[2017-07-26 07:36] LABS: BASOPHILS # (AUTO) 0.1 K/uL (0.00-0.22); BASOPHILS % (AUTO) 1.8 % (0.0-2.0); EOSINOPHILS # (AUTO) 0.3 K/uL (0-0.4); EOSINOPHILS % (AUTO) 3.9 % (0.0-4.0); HEMATOCRIT 28.7 % (36-48); HEMOGLOBIN 9.4 g/dL (12.0-16.0); LYMPHOCYTES # (AUTO) 2.4 K/uL (2.5-16.5); LYMPHOCYTES % (AUTO) 36.3 % (20.5-51.1); MEAN CORPUSCULAR HEMOGLOBIN 28 pg (27-31); MEAN CORPUSCULAR HGB CONC 33 g/dL (33-37); MEAN CORPUSCULAR VOLUME 86.3 fL (80-94); MONOCYTES # (AUTO) 0.7 K/uL (0.8-1.0); MONOCYTES % (AUTO) 11.3 % (1.7-9.3); NEUTROPHILS % (AUTO) 46.7 % (42.2-75.2); PLATELET COUNT (AUTO) 385 K/uL (140-450); RED BLOOD CELL COUNT(AUTO) 3.32 MIL/uL (4.20-5.40); WHITE BLOOD COUNT (AUTO) 6.5 K/uL (4.8-10.8)
[2017-07-26 07:42] LABS: ANION GAP 13.6 (8-16); CARBON DIOXIDE 23.3 mmol/L (21-32); CREATININE 0.6 mg/dL (0.6-1.3); MAGNESIUM 1.8 mg/dL (1.8-2.4); PHOSPHORUS 6.4 mg/dL (2.5-4.9); POTASSIUM 3.9 mmol/L (3.5-5.1); TOTAL BILIRUBIN 0.2 mg/dL (0.0-1.0)
[2017-07-26 08:00] VITALS: BP 119/81
[2017-07-26] MEDS: PARoxetine 20 MG TAB PO SCH (08:40)
[2017-07-26] MEDS: ENOXAPARIN 40 MG/0.4 ML SYR SUBQ SCH (08:43)
--- NOTE | 2017-07-26 09:50 | NUR ---
CM NOTE INITIAL REVIEW FAXED TO [facility] [phone] [place] PH# [phone]
--- NOTE | 2017-07-26 10:02 | NUR ---
PATIENT IN BED IN SEMI-FOWLERS POSITION. PATIENT SHOWS NO SIGNS OF RESPIRATORY DISTRESS OR RESPIRATORY DEPRESSION. PATIENT ASKED ABOUT PAIN MEDICATIONS. WILL FOLLOW UP WITH ATTENDING
--- NOTE | 2017-07-26 10:08 | NUR ---
PATIENT HAS BEEN SCREENED AND CATEGORIZED MODERATE NUTRITION RISK. PATIENT WILL BE SEEN WITHIN 3-5 DAYS OF ADMISSION. 07/29/17 - 07/31/[address] Addendum: 07/26/17 at [address] PATIENT HAS BEEN RESCREENED AND RECATEGORIZED HIGH NUTRITION RISK. PATIENT WILL BE SEEN WITHIN 1-2 DAYS OF ADMISSION. 07/26/17 - 07/27/[address]
--- NOTE | 2017-07-26 11:02 | NUR ---
ADMINISTERED 6 MG/1.5 ML OF MORHINE TO PATIENT THROUGH IV. PATIENT DOES NOT PRESENT WITH ANY SEVERE ALLERGIC REACTIONS. GAVE BENADRYL WITH PATIENT TO HELP PREVENT UNWANTED SYSTEMS WHEN TAKING MORPHINE.
[2017-07-26] MEDS ORDERED: TPN PER PHARMACY MC PRN (11:05)
[2017-07-26] MEDS ORDERED: PROCHLORPERAZINE 10 MG/2 ML VIAL IVP PRN (11:05)
[2017-07-26 12:41] LABS: CHOL/HDL RATIO 3.3 (1-4.5)
[2017-07-26] MEDS: METOCLOPRAMIDE 10 MG TAB PO SCH ×3 (13:20→20:55)
--- NOTE | 2017-07-26 13:37 | NUR ---
PATIENT RESTING IN BED. NO COMPLAINTS OF PAIN AT THIS TIME. NO SIGNS OF RESPIRATORY DISTRESS OR RESPIRATORY DEPRESSION. ASKING IF HER DIET WILL BE ADVANCED. CALLED DR. RAMIREZ REGARDING THIS MATTER. AWAITING CALL BACK.
--- NOTE | 2017-07-26 15:50 | NUR ---
PATIENT ASLEEP AT THIS TIME. NO SIGNS OF RESPIRATORY DISTRESS OR RESPIRATORY DEPRESSION. WILL CONTINUE TO MONITOR PATIENT.
[2017-07-26 16:00] VITALS: BP 125/79
[2017-07-26] MEDS: SENNA 8.6 MG TAB PO SCH (17:11)
--- NOTE | 2017-07-26 17:11 | NUR ---
PATIENT REFUSED MEDICATION SENNA. EXPLAINED THE REASONING BEHIND THE MEDICATION AND WHY SHE IS TAKING IT. PATIENT AGREED TO TAKE IT. PATIENT TOLERATED WELL.
[2017-07-26] MEDS ORDERED: INSULIN LISPRO SLIDING SCALE 100 UNITS/ML VIAL SUBQ PRN (18:00)
[2017-07-26] MEDS: MORPHINE SULFATE 4 MG/ML SYR IVP PRN ×2 (18:30→23:41)
[2017-07-26] MEDS: BLOOD GLUCOSE MONITORING 1 DEV DEV MC SCH ×2 (18:39→23:42)
--- NOTE | 2017-07-26 19:22 | NUR ---
GAVE REPORT TO NIGHTSHIFT NURSE AT BEDSIDE. PATIENT IN STABLE CONDITION.
--- NOTE | 2017-07-26 19:30 | NUR ---
ASSUMED CARE OF PATIENT, AWAKE, ALERT AND ORIENTED. NO COMPLAINS. FAMILY AT BEDSIDE. CALL LIGHT WITHIN REACH.
[2017-07-26] MEDS ORDERED: MULTIVITAMIN IV SCH ×4 (20:00)
[2017-07-26] MEDS ORDERED: [UNRECOGNIZED DRUG - OTHER] IV SCH ×4 (20:00)
[2017-07-26] MEDS ORDERED: AMINO ACIDS 8.5% IV SCH ×4 (20:00)
[2017-07-26] MEDS ORDERED: DEXTROSE IV SCH ×4 (20:00)
--- NOTE | 2017-07-26 20:00 | NUR ---
PLAN OF CARE DISCUSSED WITH PATIENT, VERBALIZED UNDERSTANDING WELL. FAMILY AT BEDSIDE. CARE BOARD UPDATED. CALL LIGHT WITHIN REACH. TPN STARTED ORDERED.
[2017-07-26] MEDS: FAMOTIDINE 20 MG/2 ML VIAL IV SCH (20:55)
[2017-07-26] MEDS: POLYETHYLENE GLYCOL 17 GM/PKT PO SCH (20:55)
[2017-07-27 00:05] VITALS: BP 122/66
--- NOTE | 2017-07-27 00:06 | NUR ---
NPO ADVISED FOR EGD IN AM, AMENABLE. PAIN MEDS GIVEN PER REQUEST. TPN TOLERATING WELL. VOIDING WELL. AFEBRILE. VITAL SIGNS STABLE. CALL LIGHT WITHIN REACH.
[2017-07-27] MEDS: BLOOD GLUCOSE MONITORING 1 DEV DEV MC SCH ×4 (05:40→20:41)
[2017-07-27] MEDS: diphenhydrAMINE 12.5 MG/5 ML UDC PO PRN (06:13)
[2017-07-27] MEDS: MORPHINE SULFATE 4 MG/ML SYR IVP PRN ×3 (06:13→22:46)
--- NOTE | 2017-07-27 07:25 | NUR ---
RECEIVED REPORT FROM NIGHTSHIFT NURSE AT BEDSIDE. PATIENT DOES NOT COMPLAIN OF PAIN AT THIS TIME. NO RESPIRATORY DISTRESS OR RESPIRATORY DEPRESSION. REMINDED PATIENT OF PROCEDURE TODAY AND THAT SHE IS STILL NPO. PATIENT UNDERSTOOD INSTRUCTIONS. PATIENT PRESENTS IN SEMI-FOWLERS POSITION. UPDATED BOARD IN PATIENTS ROOM. LOWERED BED TO LOWEST SETTING. WILL CONTINUE TO MONITOR PATIENT.
--- NOTE | 2017-07-27 07:31 | NUR ---
ENDORSED CARE AT BEDSIDE WITH PERRY RN, PATIENT IN STABLE CONDITION.
[2017-07-27 08:00] VITALS: BP 124/70
[2017-07-27] MEDS ORDERED: INSULIN REGULAR, HUMAN 100 UNIT/ML VIAL SUBQ ONE (08:10)
--- NOTE | 2017-07-27 08:27 | NUR ---
PATIENTS BLOOD SUGAR IS 87 AT THIS TIME FROM POC ACCUCHECK GLUCOMETER. WILL VERIFY WITH LABORATORY THE CRITICAL LAB VALUE OF 698 BS.
[2017-07-27] MEDS ORDERED: LACTULOSE 20 GM/30 ML UDC PO SCH (09:00)
[2017-07-27] MEDS: SENNA 8.6 MG TAB PO SCH ×3 (09:39→16:17)
[2017-07-27] MEDS: METOCLOPRAMIDE 10 MG TAB PO SCH ×3 (09:40→16:14)
[2017-07-27] MEDS: POLYETHYLENE GLYCOL 17 GM/PKT PO SCH (09:40)
[2017-07-27] MEDS: PARoxetine 20 MG TAB PO SCH (09:40)
[2017-07-27] MEDS: FAMOTIDINE 20 MG/2 ML VIAL IV SCH (09:41)
[2017-07-27] MEDS: ENOXAPARIN 40 MG/0.4 ML SYR SUBQ SCH (09:47)
--- NOTE | 2017-07-27 10:00 | NUR ---
PATIENT ASLEEP AT THIS TIME. NO RESPIRATORY DISTRESS OR RESPIRATORY DEPRESSION. WILL CONTINUE TO MONITOR PATIENT.
[2017-07-27 10:42] LABS: ANION GAP 15.5 (8-16); CARBON DIOXIDE 22.4 mmol/L (21-32); CREATININE 0.6 mg/dL (0.6-1.3); POTASSIUM 3.9 mmol/L (3.5-5.1)
[2017-07-27 11:24] LABS: MAGNESIUM 1.6 mg/dL (1.8-2.4)
[2017-07-27 11:25] LABS: PHOSPHORUS 6.1 mg/dL (2.5-4.9)
--- NOTE | 2017-07-27 11:44 | NUR ---
PATIENT RESTING AT THIS TIME. NO COMPLAINTS OF PAIN. NO RESPIRATORY DISTRESS OR RESPIRATORY DEPRESSION NOTED. WILL CONTINUE TO MONITOR PATIENT.
[2017-07-27] MEDS ORDERED: MULTIVITAMIN IV SCH ×4 (11:49)
[2017-07-27] MEDS ORDERED: [UNRECOGNIZED DRUG - OTHER] IV SCH ×4 (11:49)
[2017-07-27] MEDS ORDERED: DEXTROSE IV SCH ×4 (11:49)
[2017-07-27] MEDS ORDERED: AMINO ACIDS IV SCH ×4 (11:49)
--- NOTE | 2017-07-27 12:37 | NUR ---
PATIENT RESTING AT THIS TIME. PATIENT AROUSABLE TO NAME. NO COMPLAINTS OF PAIN. WILL CONTINUE TO MONITOR PATIENT.
--- NOTE | 2017-07-27 12:49 | NUR ---
CM NOTE CONCURRENT REVIEW FAXED TO [facility] [phone] TOMASZ # [phone]
[2017-07-27] MEDS: diphenhydrAMINE 50 MG/ML VIAL ONE ×2 (14:59→17:03)
[2017-07-27] MEDS: MIDAZOLAM 2 MG/2 ML VIAL ONE ×2 (14:59→17:03)
--- NOTE | 2017-07-27 15:40 | NUR ---
07/27/17 RD INITIAL ASSESSMENT COMPLETED PLEASE REFER TO NUTRITION ASSESSMENT UNDER CARE ACTIVITY FOR ESTIMATED NUTRITIONAL NEEDS. 1. CONTINUE CLEAR LIQUIDS, NPO AFTER MIDNIGHT AND TPN NUTRITION SUPPORT TOLERATED. -TPN CONSISTS OF DEXTROSE 10%, AA 3.25% AT 75 ML/HR, AND LIPIDS 10% 125 ML. THIS WILL PROVIDE 971 KCAL/DAY, 58 GM PROTEIN/DAY IN 1800 ML, 931 MOSM/L; MEETING 65% OF ESTIMATED ENERGY NEEDS AND >75% OF PROTEIN NEEDS. 2. RD TO FOLLOW-UP 2-3 DAYS, HIGH RISK ENMA POSADA RD
[2017-07-27 16:00] VITALS: BP 146/81
--- NOTE | 2017-07-27 16:16 | NUR ---
PATIENT AWAKE AT THIS TIME. NO COMPLAINTS OF PAIN. NO RESPIRATORY DEPRESSION OR RESPIRATORY DISTRESS. WILL CONTINUE TO MONITOR PATIENT.
--- NOTE | 2017-07-27 16:35 | NUR ---
PATIENT LEFT THE UNIT VIA BED WITH O.R. NURSE. PATIENT LEFT IN STABLE CONDITION.
[2017-07-27] MEDS ORDERED: HYDROmorphone PFS 2 MG/ML SYR ONE (16:54)
--- NOTE | 2017-07-27 17:20 | NUR ---
PATIENT CAME BACK FROM OR WITH O.R. NURSES. PATIENT ARRIVED VIA BED. PATIENT VITAL SIGNS ARE STABLE. PATIENT IN STABLE CONDITION.
[2017-07-27] MEDS ORDERED: MAGNESIUM CITRATE 300 ML BTL PO SCH (17:35)
--- NOTE | 2017-07-27 19:22 | NUR ---
GAVE REPORT TO NIGHTSHIFT NURSE AT BEDSIDE. PATIETN IN STABLE CONDITION.
--- NOTE | 2017-07-27 19:23 | NUR ---
RECD. RESTING IN BED, SLEEPING BUT EASILY WAKES UP WHEN NAME CALLED. A/OX4. RESPIRATION EVEN AND UNLABORED. IV OF NS AT 10 ML/HR AND TPN INFUSING AT 75 ML/HR, RIGHT UPPER ARM PICC LINE. WITH COLOSTOMY BAG, DRAINING MINIMAL AMOUNT OF BROWNISH FLUID. USES BSC TO VOID. ON BILATERAL LEG SEQUENTIALS. PLAN OF CARE FOR THE SHIFT DISCUSSED. VERBALIZED UNDERSTANDING. FAMILY AT THE BEDSIDE.
--- NOTE | 2017-07-27 20:00 | NUR ---
Patient's Plan of Care was discussed and reviewed with PR MANAGER: KAMAR LOWRY.
[2017-07-27] MEDS: LACTULOSE 20 GM/30 ML UDC PO SCH (21:00)
--- NOTE | 2017-07-27 21:25 | NUR ---
INFORMED DR. Leonel ACEVEDO, PATIENT IS REFUSING COLONOSCOPY BECAUSE SHE HAD ONE THREE YEARS AGO. ORDERED REGULAR TO REPLACE CLEAR LIQUID DIET.
[2017-07-28] VITALS: BP 134/88
--- NOTE | 2017-07-28 02:15 | NUR ---
NAUSEATED, MEDICATED WITH ZOFRAN 4 MG. IVP BY MINGO CORDERO.
--- NOTE | 2017-07-28 02:45 | NUR ---
NO NAUSEA NOTED, RESTING COMFORTABLY IN BED.
[2017-07-28 03:17] VITALS: BP 136/86
[2017-07-28] MEDS: MORPHINE SULFATE 4 MG/ML SYR IVP PRN ×2 (03:51→08:34)
[2017-07-28] MEDS: diphenhydrAMINE 12.5 MG/5 ML UDC PO PRN ×3 (03:59→15:13)
--- NOTE | 2017-07-28 03:59 | NUR ---
MEDICATED WITH BENADRYL ORDERED.
--- NOTE | 2017-07-28 04:59 | NUR ---
NO NAUSEA NOTED, NO ITCHINESS AND NO HEADACHE.
[2017-07-28] MEDS: BLOOD GLUCOSE MONITORING 1 DEV DEV MC SCH ×2 (06:00→12:27)
--- NOTE | 2017-07-28 07:20 | NUR ---
CONDITION REMAIN STABLE. ENDORSED TO AM NURSE FOR CONTINUITY OF CARE.
--- NOTE | 2017-07-28 07:21 | NUR ---
RECEIVED REPORT FROM NIGHT NURSE AT PT BEDSIDE. PATIENT IS ALERT AND ORIENTED. TPN RUNNING THROUGH PICC LINE. DENIES N/V. COLOSTOMY BAG IN PLACE. CALL LIGHT WITHIN REACH. WILL CONTINUE TO MONITOR.
[2017-07-28 08:00] VITALS: BP 127/70
[2017-07-28] MEDS: LACTULOSE 20 GM/30 ML UDC PO SCH ×3 (08:33→17:00)
[2017-07-28] MEDS: SENNA 8.6 MG TAB PO SCH ×3 (08:35→17:00)
[2017-07-28] MEDS: POLYETHYLENE GLYCOL 17 GM/PKT PO SCH ×3 (08:35→17:00)
[2017-07-28] MEDS ORDERED: oxyCODONE/APAP 5/325 MG 1 TAB TAB PO PRN (09:15)
[2017-07-28] MEDS ORDERED: PANT40EC PO (09:18)
[2017-07-28] MEDS ORDERED: MAG SULF 2000 MG/WATER PREMIX 100 ML IV SCH (09:30)
--- NOTE | 2017-07-28 10:59 | NUR ---
PATIENT CONTINUED ON MG SULFATE, DENIES PAIN AT THIS TIME. DENIES N/V.
--- NOTE | 2017-07-28 12:46 | NUR ---
VERONICA VEGA SPOKE WITH [facility] VERONICA TOLBERT AND GAVE HER A VERBAL CLINICAL UPDATE ON THE PATIENT AND INFORMED HER OF THE ORDER FOR HOME HEALTH PICC LINE CARE, TPN, RESUME HOME TPN. FAXED [facility] THE ORDER, LATEST PROGRESS NOTE AND DISCHARGE SUMMARY. PER [facility] VERONICA TOLBERT, PATIENT HAS BEEN WITH [facility], GENERAL NUMBER # [phone] AND TO SEND THE ORDER TO [facility]. SPOKE WITH JAMI OF [facility] NURSING AND SHE STATED THAT PATIENT HAS BEEN WITH THEM AND THEY HAVE BEEN PROVIDING THE HOME HEALTH AND TPN FOR PATIENT. PER JAMI, COORDINATE WITH THEIR PHARMACY FOR THE TPN AND THEN THEY WILL SET UP WHEN TO DELIVER AND WHEN TO SEE PATIENT. I INFORMED JAMI OF THE DISCHARGE ORDER FOR TODAY. SPOKE WITH MARILU OF [facility] PH# [phone] AND SHE REQUESTED FOR THE ORDER AND THE MOST CURRENT TPN [facility] IN THE HOSPITAL TO BE FAXED TO THEM FAX# [phone]. FAXED CLINICAL ORDER AND CLINICAL PACKET TO [facility] [phone].
--- NOTE | 2017-07-28 13:20 | NUR ---
PATIENT CONTINUES TO REFUSE LAB DRAWS. PATIENT TPN OFF AT THIS TIME. PATIENT MADE AWARE OF DISCHARGE PLANNING AND PLAN OF CARE. NO S/S OF ACUTE DISTRESS NOTED AT THIS TIME.
--- NOTE | 2017-07-28 14:11 | NUR ---
CM NOTE PER CHARGE NURSE RODRIGO THE ORDER IS TO RESUME HOME TPN AND THIS WAS RELAYED TO MARILU OF [facility]. PER MARILU OF [facility] PH# [phone], PATIENT'S TPN AND HOME HEALTH WITH THEM HAS ALREADY BEEN ARRANGED AND THEY ARE AWARE OF THE DISCHARGE ORDER FOR TODAY. CHARGE NURSE WALLACE AWARE.
[2017-07-28 16:00] VITALS: BP 119/68
--- NOTE | 2017-07-28 16:20 | NUR ---
PATIENT COLOSTOMY BAG CHANGED AT BEDSIDE. MODERATE SMALL HARD STOOL NOTED. PATIENT DENIES DISCOMFORT AT THIS TIME. CALL LIGHT WITHIN REACH.
--- NOTE | 2017-07-28 17:41 | NUR ---
PATIENT DISCHARGE INSTRUCTIONS GIVEN WITH MEDICATION PRESCRIPTIONS. PATIENT VERBALIZED UNDERSTANDING. PICC LINE CLEAN DRY AND INTACT, PATIENT MADE AWARE OF HH F/U AT HOME. PATIENT'S MOTHER AND AT BEDSIDE TO TAKE PATIENT HOME. AMBULATED TO WHEELCHAIR, ASSISTED TO FRONT LOBBY.
== END 2017-07-28 17:30 | disposition home health service (06) | DRG 254 ==
LOC: MED 19:26 → MTU 23:29
PROVIDERS: ADMIT Hospitalist; ATTEND Hospitalist
PROC: 0DB68ZX Excision of Stomach, Via Natural or Artificial Opening Endoscopic, Diagnostic (ICD-10-PCS; principal; 2017-07-27 15:00)
DX: K59.00 Constipation, unspecified (principal); C49.9 Malignant neoplasm of connective and soft tissue, unspecified; C79.89 Secondary malignant neoplasm of other specified sites; E46 Unspecified protein-calorie malnutrition; N12 Tubulo-interstitial nephritis, not specified as acute or chronic; F11.20 Opioid dependence, uncomplicated; C18.9 Malignant neoplasm of colon, unspecified; K22.10 Ulcer of esophagus without bleeding; I10 Essential (primary) hypertension; D63.8 Anemia in other chronic diseases classified elsewhere; F32.9 Major depressive disorder, single episode, unspecified; K21.9 Gastro-esophageal reflux disease without esophagitis; E78.5 Hyperlipidemia, unspecified; G89.4 Chronic pain syndrome; Z88.6 Allergy status to analgesic agent; K29.70 Gastritis, unspecified, without bleeding; Z85.820 Personal history of malignant melanoma of skin; Z93.3 Colostomy status; F41.9 Anxiety disorder, unspecified; Z88.5 Allergy status to narcotic agent; Z88.2 Allergy status to sulfonamides; Z88.8 Allergy status to other drugs, medicaments and biological substances
CPT/HCPCS: 36415; 74018; 76705; 80048; 80053; 81003; 82948; 83690; 83735; 84100; 84703; 85025; 86677; 87086; 96361; 96374; 96375; 99285; A9153; C1758; J0696; J1170; J1200; J1650; J1815; J2250; J2270; J2405; J3475; J3490; J7030; J7060; J8597; Q0092; Q0163

== ENCOUNTER 2017-08-06 16:49 | Emergency (ER) | payer OTHER ==
[~2017-08-06] VITALS: Ht 152.4 cm; Wt 54.4 kg
[~2017-08-06 16:49] MED LIST changes: +PANT40EC PO
[2017-08-06 16:56] VITALS: BP 121/80
--- NOTE | 2017-08-06 17:00 | NUR ---
47/F BIB FAMILY C/O RIGHT HIP PAIN RADIATES TO RIGHT LEG & N/V X 2 WEEKS. PT STATES SHE IS UNABLE TO TOLERATE HOME ANTIEMETICS AND PAIN MEDS. PMH COLON CA W/ COLOSTOMY. PT SEEN HERE 2 DAYS AGO FOR SAME COMPLAINT. PICC TO LEFT UPPER ARM NOTED. AAOX4 WITH EVEN AND UNSTEADY GAIT AMB WITH W/C ; LUNGS CLEAR. PATIENT STATES PAIN OF 10/10 AT THIS TIME. PATIENT POSITIONED FOR COMFORT; HOB ELEVATED; BEDRAILS UP X2; BED DOWN. ER MD MADE AWARE OF PT STATUS.
--- NOTE | 2017-08-06 17:01 | NUR ---
Dr. Ray evaluating patient at bedside.
[2017-08-06] MEDS ORDERED: diphenhydrAMINE 50 MG/ML VIAL IVP ONE (17:10)
[2017-08-06] MEDS ORDERED: PROCHLORPERAZINE 10 MG/2 ML VIAL IVP ONE (17:10)
[2017-08-06] MEDS ORDERED: MORPHINE SULFATE 4 MG/ML SYR IVP ONE (17:10)
[2017-08-06] MEDS ORDERED: NACL 0.9% 1,000 ML IV ONE (17:10)
--- NOTE | 2017-08-06 17:44 | NUR ---
Patient appears to be SLEEPING comfortably in bed. Vital Signs within normal limits. Respirations even and unlabored.WILL CONTINUE TO MONITOR.
[2017-08-06 18:47] VITALS: BP 121/80
--- NOTE | 2017-08-06 18:48 | NUR ---
Note [email or web address] in EDM - 08/06/17 at 1849 by [facility] Patient discharged with v/s stable. Written and verbal after care instructions given and explained. Patient alert, oriented and verbalized understanding of instructions. Wheel Chair Assisted with to car. All questions addressed prior to discharge. ID band removed. Patient advised to follow up with PMD. Rx of compazine given. Patient educated on indication of medication including possible reaction and side effects. Opportunity to ask questions provided and answered.
== END 2017-08-06 18:47 | disposition home or self-care (01) ==
LOC: MED 16:49
DX: R11.2 Nausea with vomiting, unspecified (principal); R10.9 Unspecified abdominal pain; I10 Essential (primary) hypertension; E11.9 Type 2 diabetes mellitus without complications; Z85.038 Personal history of other malignant neoplasm of large intestine; Z98.890 Other specified postprocedural states; Z88.5 Allergy status to narcotic agent; Z88.6 Allergy status to analgesic agent; Z88.8 Allergy status to other drugs, medicaments and biological substances; Z79.899 Other long term (current) drug therapy
CPT/HCPCS: 96361; 96374; 96375; 99284; J0780; J1200; J2270

== ENCOUNTER 2017-08-07 20:41 | Inpatient (IN) | payer OTHER ==
[~2017-08-07] VITALS: Ht 157.5 cm; Wt 49.4 kg
[2017-08-07 20:46] VITALS: BP 113/75
--- NOTE | 2017-08-07 20:55 | NUR ---
TO ER BED 12
[2017-08-07] MEDS ORDERED: LEVOFLOXACIN 500 MG/D5W PREMIX 100 ML IV ONE (21:20)
[2017-08-07] MEDS ORDERED: diphenhydrAMINE 50 MG/ML VIAL IVP ONE (21:20)
[2017-08-07] MEDS ORDERED: MORPHINE SULFATE 4 MG/ML SYR IVP ONE (21:20)
--- NOTE | 2017-08-07 21:20 | NUR ---
47Y/F C/O RT HIP PAIN AND DIARRHEA X3 DAYS. PT COMES TO ER [facility] C/O NEW ONSET OF RT HIP PAIN THAT RADIATES DOWN RT LEG. PAIN 10/10, SHARP. SKIN TO AREA IS WARM, DRY , INTACT. ABD IS FLAT, SOFT, NONTENDER, ACTIVE BS X4. PT HAS COLOSTOMY TO LLQ. WATERY DIARRHEA NOTED IN COLOSTOMY BAG. OSOTMY SITE IS MOIST, PALE PINK. PMH ACTIVE CANCER TO RT KNEE
[2017-08-07] MEDS ORDERED: NACL 0.9% 1,000 ML IV ONE (21:25)
--- NOTE | 2017-08-07 21:25 | NUR ---
PT ARRIVES TO ER W/ PICC LINE TO RT UPPER ARM, PATENT AND FLUSHES WELL.
[2017-08-07 21:47] LABS: BILIRUBIN,URINE NEGATIVE (NEGATIVE); BLOOD, URINE NEGATIVE (NEGATIVE); LEUKOCYTE ESTERASE ,URINE 1+ (NEGATIVE); NITRITE, URINE NEGATIVE (NEGATIVE); UGLUCOSE NEGATIVE (NEGATIVE)
[2017-08-07 21:48] LABS: BASOPHILS # (AUTO) 0.1 K/uL (0.00-0.22); BASOPHILS % (AUTO) 1.2 % (0.0-2.0); EOSINOPHILS # (AUTO) 0.4 K/uL (0-0.4); EOSINOPHILS % (AUTO) 5.9 % (0.0-4.0); HEMOGLOBIN 8.5 g/dL (12.0-16.0); LYMPHOCYTES # (AUTO) 2.2 K/uL (2.5-16.5); LYMPHOCYTES % (AUTO) 34.8 % (20.5-51.1); MEAN CORPUSCULAR HEMOGLOBIN 28 pg (27-31); MEAN CORPUSCULAR HGB CONC 33 g/dL (33-37); MEAN CORPUSCULAR VOLUME 85.8 fL (80-94); MONOCYTES # (AUTO) 0.6 K/uL (0.8-1.0); MONOCYTES % (AUTO) 9.9 % (1.7-9.3); NEUTROPHILS % (AUTO) 48.2 % (42.2-75.2); PLATELET COUNT (AUTO) 424 K/uL (140-450); RED BLOOD CELL COUNT(AUTO) 3.04 MIL/uL (4.20-5.40); RED CELL DISTRIBUTION WIDTH 13.9 % (11.6-13.7); WHITE BLOOD COUNT (AUTO) 6.3 K/uL (4.8-10.8)
--- NOTE | 2017-08-07 22:03 | NUR ---
PT TO CT VIA [facility].
[2017-08-07 22:11] LABS: APPEARANCE,URINE HAZY (CLEAR); COLOR,URINE STRAW (YELLOW)
[2017-08-07 22:12] LABS: RBC,URINE NONE SEEN /HPF (0-5); WBC,URINE 20-60 /HPF (0-5)
[2017-08-07 22:17] LABS: ANION GAP 12.5 (8-16); CARBON DIOXIDE 25.2 mmol/L (21-32); POTASSIUM 3.7 mmol/L (3.5-5.1)
[2017-08-07 22:18] LABS: CREATININE 0.7 mg/dL (0.6-1.3); TOTAL BILIRUBIN 0.2 mg/dL (0.0-1.0)
[2017-08-07] MEDS ORDERED: MORPHINE SULFATE 10 MG/ML SYR IVP ONE (22:30)
[2017-08-07] MEDS ORDERED: MORPHINE SULFATE 5 MG/ML VIAL ONE (22:41)
--- NOTE | 2017-08-07 23:28 | NUR ---
PT LAYING IN BED, MOTHER AT BEDSIDE. VSS, WILL CONTINUE TO MONITOR.
--- NOTE | 2017-08-08 00:08 | NUR ---
Patient will be admitted to care of DR. DOMINGUEZ. Admited to MED/SURG. Will go to room 113. Belongings list completed. Report to KANIKA.
[2017-08-08] MEDS ORDERED: diphenhydrAMINE 50 MG/ML VIAL IVP ONE (00:20)
--- NOTE | 2017-08-08 01:05 | NUR ---
RECEIVED PT REPORT FROM ER AT BEDSIDE FOR CONTINUITY OF CARE. . PT CAME IN [facility]. PT AAO X4. PT HAS NO SOB, NO S/S OF DISTRESS. PT IS ON RA. IV NOTED PICC LINE R UPPER ARM PATENT. PATIENT HAS COLOSTOMY LLQ. PT IS ON CONTACT PRECAUTIONS TO R/O C-DIFF. BED LOWERED CALL LIGHT WITHIN REACH WILL CONTINUE TO MONITOR.
[2017-08-08] MEDS ORDERED: HYDROcodone/APAP 10/325 MG 1 TAB TAB PO PRN (01:50)
[2017-08-08] MEDS: NACL 0.45% 1,000 ML IV SCH ×2 (01:50→16:49)
[2017-08-08] MEDS ORDERED: ACETAMINOPHEN 325 MG TAB PO PRN ×2 (01:50→09:10)
--- NOTE | 2017-08-08 02:30 | NUR ---
PT STATED SHE IS IN SEVERE PAIN AND NEEDS MORPHINE CALLED DR FOR ORDER. DR ORDERED MORPHINE 2MG ONCE. CALLED BACK TO GET ORDERED FOR BENADRYL AND DR SAID NO. PT IS AWARE AND DEBATING WHETHER TO LEAVE AMA OR STAY.
[2017-08-08] MEDS ORDERED: cefTRIAXone 1,000 MG VIAL ONE (02:45)
[2017-08-08] MEDS ORDERED: MORPHINE SULFATE 4 MG/ML SYR IVP SCH ×2 (03:30→10:45)
--- NOTE | 2017-08-08 04:00 | NUR ---
PT IS COMPLAINING THAT MORPHINE ONLY ALLEVIATED A LITTLE BIT. AND RE-REQUESTING BENADRYL.
[2017-08-08 04:54] VITALS: BP 119/73
[2017-08-08 06:38] LABS: BASOPHILS % (AUTO) 0.6 % (0.0-2.0); EOSINOPHILS # (AUTO) 0.4 K/uL (0-0.4); EOSINOPHILS % (AUTO) 6.2 % (0.0-4.0); HEMATOCRIT 24.7 % (36-48); HEMOGLOBIN 8.1 g/dL (12.0-16.0); LYMPHOCYTES % (AUTO) 35.2 % (20.5-51.1); MEAN CORPUSCULAR HEMOGLOBIN 28 pg (27-31); MEAN CORPUSCULAR HGB CONC 33 g/dL (33-37); MEAN CORPUSCULAR VOLUME 86.3 fL (80-94); MONOCYTES # (AUTO) 0.6 K/uL (0.8-1.0); MONOCYTES % (AUTO) 9.7 % (1.7-9.3); NEUTROPHILS # (AUTO) 2.8 K/uL (1.8-7.7); NEUTROPHILS % (AUTO) 48.3 % (42.2-75.2); PLATELET COUNT (AUTO) 393 K/uL (140-450); RED BLOOD CELL COUNT(AUTO) 2.86 MIL/uL (4.20-5.40); RED CELL DISTRIBUTION WIDTH 13.8 % (11.6-13.7); WHITE BLOOD COUNT (AUTO) 5.8 K/uL (4.8-10.8)
--- NOTE | 2017-08-08 07:22 | NUR ---
GAVE REPORT TO DAYSHIFT NURSE FOR CONTINUITY OF CARE. WILL CONTINUE WITH PLAN OF CARE.
--- NOTE | 2017-08-08 07:23 | NUR ---
RECEIVED PT FROM PM NURSE AT THE BESIDE. PT AOX4. INTRODUCED SELF AND UPDATED THE BOARD.PT HAS PICC LINE ON RT FOREARM. PICC LINE INTACT. PT COOPERATIVE AND STABLE AT THE TIME. PT HAS OSTOMY AT Q. NO DRAINAGE . PT SITTING UP AND HAVING BREAKFAST. PT CALL LIGHT WITHIN REACH. BED AT LOWER POSITION. SIDE RAIL UP 2X. WILL CONTINUE TO MONITOR.
[2017-08-08 08:00] VITALS: BP 115/70
[2017-08-08 08:08] LABS: ANION GAP 14.8 (8-16); CARBON DIOXIDE 22.9 mmol/L (21-32); CREATININE 0.7 mg/dL (0.6-1.3); POTASSIUM 3.7 mmol/L (3.5-5.1)
[2017-08-08] MEDS: ENOXAPARIN 40 MG/0.4 ML SYR SUBQ SCH (09:00)
[2017-08-08] MEDS ORDERED: MORPHINE SULFATE ORAL SOLN 2 MG/ML UDC PO PRN (10:30)
--- NOTE | 2017-08-08 11:25 | NUR ---
PATIENT HAS BEEN SCREENED AND CATEGORIZED HIGH NUTRITION RISK. PATIENT WILL BE SEEN WITHIN 1-2 DAYS OF ADMISSION. 08/08/17 08/09/[address]
[2017-08-08] MEDS ORDERED: ONDANSETRON 4 MG/2 ML VIAL IVP PRN (12:55)
--- NOTE | 2017-08-08 13:11 | NUR ---
PT STATED SHE WAS FEELING NAUSEOUS. ADMINISTERED ZOFRAN IVP FOR NAUSEA. PT TOLERATED WELL. PT ASKED FOR MORE ICE CHIPS. NO SIGNS OF DISTRESS. CALL LIGHT WITHIN REACH. WILL CONTINUE TO MONITOR.
--- NOTE | 2017-08-08 14:05 | NUR ---
CM NOTE INITIAL REVIEW FAXED TO [facility] [phone] TOMASZ # [phone]
[2017-08-08 16:00] VITALS: BP 135/85
--- NOTE | 2017-08-08 16:46 | NUR ---
PT STATED SHE HAD PAIN. ADMINISTERED MORPHINE PO. PT TOLERATED WELL. NO SIGNS OF DISTRESS. CALL LIGHT WITHIN REACH. WILL CONTINUE TO MONITOR.
[2017-08-08] MEDS ORDERED: ALTEPLASE 100 MG VIAL IV ONE (17:50)
[2017-08-08] MEDS ORDERED: ALTEPLASE 2 MG VIAL MC SCH (18:30)
--- NOTE | 2017-08-08 18:30 | NUR ---
CALLED DR HUTCHINSON AND REPORTED FOR THE PICC LINE. DID NOT FLUSH. GOT ORDER FOR ACTIVASE. CONTACTED PHARMACY FOR THE DOSE. WILL WAIT FOR THE MED AVAILABLE.
--- NOTE | 2017-08-08 19:20 | NUR ---
PT ENDORSED TO PM NURSE FOR CONTINUITY OF CARE. PT STABLE AT THIS TIME.
--- NOTE | 2017-08-08 20:00 | NUR ---
Leonor alcantarsupervisor sleeping bag department from [employer] called and stated pt's mother called her telling them if we can use a STAT lock dressing on pt's PICC line to secure the site. Spoke with Jess AGUILAsupervisor print line stated that we only carry the CVP dressing that does not have a lock. Charmaine alcantar shift charge nurse also notified.
--- NOTE | 2017-08-08 20:41 | NUR ---
PICC LINE DRESSING CHANGED PER PT REQUEST, RED LUMEN DIFFICULT TO FLUSH, CATHFLO ADMINISTERED ORDERED, WILL ASSESS IN 30 MINUTES, BLUE LUMEN FLUSHES WELL WITH GOOD BLOOD RETURN, MONITORED CLOSELY.
--- NOTE | 2017-08-08 21:30 | NUR ---
RED LUMEN FLUSHES WELL WITH GOOD BLOOD RETURN, ROCEPHIN IVPB ADMINISTERED, ALL NEEDS ATTENDED.
--- NOTE | 2017-08-08 22:00 | NUR ---
PT COMPLAINING OF RT HIP PAIN, REFUSED MORPHINE 10MG PO SAYING IT'S NOT WORKING, PAGED DR HUTCHINSON WITH NEW ORDER, MORPHINE 4MG IVP GIVEN, MONITORED CLOSELY.
[2017-08-08] MEDS: MORPHINE SULFATE 4 MG/ML SYR IVP PRN (22:18)
--- NOTE | 2017-08-08 22:20 | NUR ---
PT USES BEDSIDE COMMODE AND VOIDED FREELY, PT REQUESTED COLOSTOMY BAG CHANGED, BM WITH SOFT BROWN STOOL MODERATE AMOUNT, STOOL NOT QUALIFIED FOR C-DIFF, NEW COLOSTOMY BAG APPLIED, MONITORED CLOSELY.
--- NOTE | 2017-08-08 23:40 | NUR ---
MOTHER VISITED AND BROUGHT CENTRAL LINE DRESSING WITH STAT LOCK, STAT LOCK APPLIED FOR SECUREMENT AND DRESSING CHANGE DONE TO PICC LINE, PT COMPLAINING OF ITCHINESS DUE TO HX OF MELANOMA, DR HUTCHINSON PAGED WITH NEW ORDER, BENADRYL IVP GIVEN PRN ORDERED, VITAL SIGNS STABLE, NO SOB NOTED, IVF INFUSING WELL, CONTINUE TO MONITOR CLOSELY.
[2017-08-09] VITALS: BP 126/76
[2017-08-09] MEDS: MORPHINE SULFATE 4 MG/ML SYR IVP PRN ×5 (02:20→17:53)
[2017-08-09] MEDS: diphenhydrAMINE 50 MG/ML VIAL IVP PRN ×4 (03:57→16:40)
--- NOTE | 2017-08-09 03:57 | NUR ---
COMPLAINING OF ITCHINESS, MEDICATED PRN FOR BENADRYL, MONITORED CLOSELY.
[2017-08-09] MEDS: NACL 0.45% 1,000 ML IV SCH ×2 (04:30→10:05)
--- NOTE | 2017-08-09 06:23 | NUR ---
PT MEDICATED PRN FOR PAIN, COLOSTOMY INTACT WITH SMALL AMOUNT OF SOFT STOOL.
--- NOTE | 2017-08-09 07:05 | NUR ---
RECEIVED PATIENT REPORT AT BEDSIDE. PATIENT AWAKE, ALERT AND ORIENTED. NO S/S OF DISTRESS NOTED. BED LOWERED WITH CALL LIGHT WITHIN REACH. WILL CONTINUE TO MONITOR
--- NOTE | 2017-08-09 07:30 | NUR ---
PT AWAKE, NO SIGNS OF DISTRESS, REPORT GIVEN TO MINGO GRIFFIN FOR CONTINUITY OF CARE.
[2017-08-09 08:00] VITALS: BP 133/79
[2017-08-09] MEDS: ENOXAPARIN 40 MG/0.4 ML SYR SUBQ SCH (08:24)
[2017-08-09] MEDS ORDERED: MSCON30 PO (10:24)
--- NOTE | 2017-08-09 11:30 | NUR ---
CHANGED PATIENT'S PICC LINE DRESSING PER PATIENT'S REQUEST. PICC LINE FLUSHED WITH NO RESISTANCE. GOOD BLOOD RETURN NOTED ON BOTH PORTS.
--- NOTE | 2017-08-09 14:00 | NUR ---
NEW PICC LINE INSERTED ON THE LEFT ARM. PLACEMENT VERIFIED VIA XR. PORTS FLUSHED WITH NO RESISTANCE. GOOD BLOOD RETURN NOTED
--- NOTE | 2017-08-09 14:04 | NUR ---
08/09/17 RD INITIAL ASSESSMENT COMPLETED PLEASE REFER TO NUTRITION ASSESSMENT UNDER CARE ACTIVITY FOR ESTIMATED NUTRITIONAL NEEDS. 1. CONTINUE DIET TOLERATED 2. RD TO FOLLOW-UP 2-3 DAYS, HIGH RISK ENMA POSADA RD
[2017-08-09 16:00] VITALS: BP 134/93
--- NOTE | 2017-08-09 18:45 | NUR ---
PATIENT DISCHARGED TO HOME. DISCHARGE INSTRUCTIONS AND DISCHARGE PRESCRIPTIONS GIVEN. PATIENT VERBALIZED UNDERSTANDING. PATIENT LEFT WITH ALL HER DISCHARGE PAPERS AND BELONGINGS. PATIENT LEFT IN STABLE CONDITION
--- NOTE | 2017-08-10 11:01 | NUR ---
LATE ENTRY. RECEIVED A CALL FROM NA FROM [facility] ABOUT THIS PATIENT. ASKED FOR THE DISCHARGE ORDER. DISCHARGE ORDER FAXED TO HER AT [phone]
== END 2017-08-09 18:45 | disposition home health service (06) | DRG 249 ==
LOC: MED 20:41 → MTU 08-08 00:41 → EDBEDREQSVC 08-08 00:42 → MTU 08-08 01:00 → OBSVTOIN 08-08 09:12
PROVIDERS: ADMIT Hospitalist; ATTEND Hospitalist
PROC: 02HV33Z Insertion of Infusion Device into Superior Vena Cava, Percutaneous Approach (ICD-10-PCS; principal; 2017-08-09)
PROC: B548ZZA Ultrasonography of Superior Vena Cava, Guidance (ICD-10-PCS; 2017-08-09)
DX: A09 Infectious gastroenteritis and colitis, unspecified (principal); E44.0 Moderate protein-calorie malnutrition; I10 Essential (primary) hypertension; N39.0 Urinary tract infection, site not specified; Z85.038 Personal history of other malignant neoplasm of large intestine; Z88.6 Allergy status to analgesic agent; Z88.5 Allergy status to narcotic agent; Z88.8 Allergy status to other drugs, medicaments and biological substances; Z93.3 Colostomy status; Z85.820 Personal history of malignant melanoma of skin; Z98.891 History of uterine scar from previous surgery; Z90.49 Acquired absence of other specified parts of digestive tract
CPT/HCPCS: 96361; 96365; 96366; 96375; 96376; 99285; G0378; 36415; 71045; 72192; 73700; 80048; 80053; 81001; 82150; 83690; 85025; 87081; 87086; 87186; C1751; J0696; J1200; J1650; J1956; J2270; J2405; J2997; J7030; J7060; Q0092; Q0163

== ENCOUNTER 2017-08-18 13:54 | Inpatient (IN) | payer OTHER ==
[~2017-08-18] VITALS: Ht 157.5 cm; Wt 47.2 kg
[~2017-08-18 13:54] MED LIST changes: -ATOR40TA PO; -LISI-420 PO; +MSCON30 PO; -OXYC1TAB PO
[2017-08-18 13:55] VITALS: BP 90/59
--- NOTE | 2017-08-18 14:04 | NUR ---
PT WHEELED TO BED 3
--- NOTE | 2017-08-18 14:10 | NUR ---
PT. CAME INTO ED DUE TO CHEST PAIN. PT STATES " DR. DOMINGUEZ TOLD ME TO COME TO THE ER BECAUSE I HAVE HAD CHEST PAIN, AND HE DID SOME TYPE OF TEST AND TOLD ME TO COME OVER HERE, I HAVE HAD THIS CHEST PAIN SINCE LAST TUESDAY AND IT GETS WORSE WHEN I GET MY TPN THROUGH MY PICC LINE". PICC LINE ON L UPPER ARM PRESENT NO REDNESS NOTED OR SWELLING, PT. STATES SHE HAD THIS PICC LINE IN PLACE ON 08/09/2017. , PT. IS PAIL AND WARM TO TOUCH. AAOX4. PT. STATES SHE GETS CHEMOTHERAPY AND JUST HAD HER CHEMOTHERAPY LAST WEEK AND SHE GETS IT EVERY 3 WEEKS, SHE STATES SHE HAS " MELANOMA TO THE BONE". PT. HAS COLOSTOMY PRESENT ON LLQ, STOMA IS PINK AND MOIST,NO IRRITATION NOTED , BM PRESENT AND GREEN IN COLOR. PT. STATES SHE HAS CHEST PAIN 10/10 X 6 DAYS THAT IS STABBING AND STAYS IN HER CHEST AND DOES NOT RADIATE, PT STATES " IT GETS WORSE WHEN THEY GIVE ME MY TPN". RR EVEN AND UNLABORED. PT STATES SHE HAS NAUSEA, HAS VOMITED THE LAST TWO DAYS AND HAS BEEN HAVING FEVER AND CHILLS. Kavon NASSAR NOTIFIED. SAFETY PRECAUTIONS INITIATED. WELL CONTINUE TO MONITOR.
--- NOTE | 2017-08-18 14:14 | NUR ---
Patient being evaluated by DR MADDEN at bedside.
[2017-08-18] MEDS ORDERED: MORPHINE SULFATE 2 MG/ML SYR IVP ONE ×2 (14:20→17:00)
[2017-08-18] MEDS ORDERED: ONDANSETRON 4 MG/2 ML VIAL IVP ONE (14:20)
[2017-08-18] MEDS ORDERED: NACL 0.9% 500 ML IV ONE ×2 (14:20)
[2017-08-18] MEDS ORDERED: diphenhydrAMINE 50 MG/ML VIAL IVP ONE ×2 (14:20→15:10)
[2017-08-18] MEDS ORDERED: MORPHINE SULFATE 4 MG/ML SYR ONE ×2 (14:36→17:20)
[2017-08-18 14:59] LABS: BASOPHILS % (AUTO) 0.6 % (0.0-2.0); EOSINOPHILS # (AUTO) 0.2 K/uL (0-0.4); EOSINOPHILS % (AUTO) 4.3 % (0.0-4.0); HEMATOCRIT 32.8 % (36-48); HEMOGLOBIN 10.8 g/dL (12.0-16.0); LYMPHOCYTES # (AUTO) 1.5 K/uL (2.5-16.5); LYMPHOCYTES % (AUTO) 28.4 % (20.5-51.1); MEAN CORPUSCULAR HEMOGLOBIN 28 pg (27-31); MEAN CORPUSCULAR HGB CONC 33 g/dL (33-37); MONOCYTES # (AUTO) 0.4 K/uL (0.8-1.0); MONOCYTES % (AUTO) 7.3 % (1.7-9.3); NEUTROPHILS # (AUTO) 3.2 K/uL (1.8-7.7); NEUTROPHILS % (AUTO) 59.4 % (42.2-75.2); PLATELET COUNT (AUTO) 364 K/uL (140-450); RED BLOOD CELL COUNT(AUTO) 3.86 MIL/uL (4.20-5.40); WHITE BLOOD COUNT (AUTO) 5.4 K/uL (4.8-10.8)
[2017-08-18 15:10] LABS: ANION GAP 14.8 (8-16); CREATININE 1.3 mg/dL (0.6-1.3); POTASSIUM 3.8 mmol/L (3.5-5.1)
[2017-08-18 15:23] LABS: ALBUMIN 3.2 g/dL (3.4-5.0); TOTAL BILIRUBIN 0.5 mg/dL (0.0-1.0)
[2017-08-18] MEDS ORDERED: CLINDAMYCIN 900 MG in DEXTROSE 5% 100 ML IV ONE (16:15)
[2017-08-18 16:23] LABS: BILIRUBIN,URINE NEGATIVE (NEGATIVE); BLOOD, URINE NEGATIVE (NEGATIVE); COLOR,URINE YELLOW (YELLOW); LEUKOCYTE ESTERASE ,URINE TRACE (NEGATIVE); NITRITE, URINE NEGATIVE (NEGATIVE); UGLUCOSE NEGATIVE (NEGATIVE)
[2017-08-18] MEDS ORDERED: CLINDAMYCIN 900 MG/6 ML VIAL IV ONE (16:26)
[2017-08-18 16:27] LABS: APPEARANCE,URINE SLIGHTLY HAZY (CLEAR)
--- NOTE | 2017-08-18 16:30 | NUR ---
PT. RESTING COMFORTABLY IN BED, RR EVEN AND UNLABORED, AAOX4, BED IN LOWEST POSITION. WILL CONTINUE TO MONITOR.
[2017-08-18 16:35] LABS: RBC,URINE 0-5 (RARE) /HPF (0-5); WBC,URINE 16-25 (MOD) /HPF (0-5)
[2017-08-18] MEDS ORDERED: ALBUTEROL 0.083% 2.5 MG/3 ML NEBU INH PRN (16:45)
[2017-08-18] MEDS ORDERED: ACETAMINOPHEN 325 MG TAB PO PRN (16:45)
[2017-08-18] MEDS ORDERED: MORPHINE SULFATE 4 MG/ML SYR IVP PRN (17:25)
--- NOTE | 2017-08-18 17:45 | NUR ---
Note leroy in ED - 08/18/17 at 1820 by GIA Patient will be admitted to care of DR. HUTCHINSON . Admited to TELEMETRY. Will go to room 115. Belongings list completed. Report to MINGO BYRNE .
--- NOTE | 2017-08-18 17:45 | NUR ---
RECEIVED PT AT BEDSIDE FROM THE ER NURSE DOUGIE. PT CC OF CHEST PAIN FOR 6 DAYS. PT VS NOTED. BP 92/58, T- 97.9, O2 99% ON NC@2LPM, RR 12, HR 72. OBTAINED PT HX AT BEDSIDE REPORT. PT AOX3. PT APPEARS DROWSY WHILE TAKING HX. PT RECEIVED MORPHINE 2MG IVP AT ER BEFORE SHE CAME TO FLOOR. PT COMPLAINING OF ITCHING. PT HAS IV ON RT UA @20G, PICC LINE ON LFT UA. PT IS CALM AND COOPERATIVE. SKIN IS INTACT. PT STABLE AT THIS TIME. ALL SAFETY MEASURE IN PLACE. WILL CONTINUE TO MONITOR.
--- NOTE | 2017-08-18 17:45 | NUR ---
Patient will be admitted to care of DR. OSHEA. Admited to TELE . Will go to room 115. Belongings list completed. Report to MINGO BYRNE .
--- NOTE | 2017-08-18 19:20 | NUR ---
PT ENDORSED TO PM NURSE FOR CONTINUITY OF CARE AT BEDSIDE. PT STABLE AT THIS TIME.
--- NOTE | 2017-08-18 19:21 | NUR ---
RECEIVED REPORT AT PT BEDSIDE FROM DAY SHIFT RN, FOR CONTINUITY OF CARE. PATIENT IS AWAKE ON 2L O2 VIA NASAL CANNULA. ABLE TO MAKE NEEDS KNOWN, ABLE TO FOLLOW COMMANDS. PT SKIN INTACT, WARM AND DRY. PATIENT HAS PERIPHERAL IV SITE TO LEFT FOREARM 22G ASYMPTOMATIC, INTACT, PATENT, AND A POSSIBLY INFECTED PIIC LINE TO RIGHT UPPER ARM. RESPIRATIONS EVEN AND UNLABORED. UPDATED BOARD. PT STABLE, NO SIGNS OF DISTRESS NOTED AT THIS TIME. BED IN LOWEST POSITION, CALL LIGHT WITHIN REACH. WILL CONTINUE TO MONITOR.
[2017-08-18 20:00] VITALS: BP 78/43
--- NOTE | 2017-08-18 20:10 | NUR ---
PAGED DR JUAN BECAUSE PT BP IS 78/43, TOOK IT A FEW TIMES AND GOT SBP's IN THE 70's AND DBP's IN THE 40'S. GOT ONE BP THAT WAS 99/ 56 BUT IT WAS PLACED IN THE FOREARM AND THE NEXT HIGHEST BP IS 78/43 POSITIONED WHERE IT IS SUPPOSED TO BE IN THE BRACHIAL ARTERY. PT IS ASKING FOR PAIN MEDICATION, EXPLAINED TO PT THAT BP WAS LOW AND SHE INSISTED BP WAS WRONG, EVEN THOUGH BP WAS TAKEN SEVERAL TIMES, ALSO EXPLAINED TO PT THAT RESPIRATION RATE WAS NOTICEABLY LOW AT 9 RESP./MIN.
--- NOTE | 2017-08-18 20:15 | NUR ---
SPOKE TO DR HODGE ABOUT PT BLOOD PRESSURE BEING LOW AND RESPIRATIONS BEING LOW, AND PT ASKING FOR MORPHINE AND BENADRYL TO BE Q4H. DR HODGE SAID TO D/C ALL IV PAIN MEDICATIONS AND MORPHINE PO AND GIVE 1L BOLUS.
--- NOTE | 2017-08-18 20:18 | NUR ---
PT REFUSED NS BOLUS AND SAID SHE WANTS ANOTHER DOCTOR. TALKED TO TYPING TEACHER AND ASKED IF IT WAS POSSIBLE. TYPING TEACHER SAID PT WOULD HAVE TO LEAVE AND FIND A DR THAT WOULD RE-ADMIT HER AGAIN. EXPLAINED THAT TO PT AND PT SAID SHE WILL BE LEAVING AMA SOON SHE FINDS A RIDE.
[2017-08-18] MEDS ORDERED: MORPHINE TAB ER 30 MG TABER PO SCH (21:00)
[2017-08-18] MEDS ORDERED: PANTOPRAZOLE 40 MG TABEC PO SCH (21:00)
[2017-08-18] MEDS ORDERED: NACL 0.9% 1,000 ML IV ONE (21:30)
[2017-08-18] MEDS: DEXT 5% / NACL 0.45% 1,000 ML IV SCH (23:00)
[2017-08-19] VITALS (7 sets, daily range): BP systolic 101–146; BP diastolic 54–87
--- NOTE | 2017-08-19 | NUR ---
VITAL SIGNS WNL. PT STABLE, NO SIGNS OF DISTRESS NOTED AT THIS TIME. BED IN LOWEST POSITION, CALL LIGHT WITHIN REACH. WILL CONTINUE TO MONITOR.
[2017-08-19] MEDS ORDERED: ceFAZolin 1,000 MG VIAL ONE ×2 (00:18→05:44)
--- NOTE | 2017-08-19 01:22 | NUR ---
SPOKE TO DR HODGE ABOUT ORDERING PAIN MEDICATION FOR PT, TOLD HER BP IS NOW 101/62. SAID THAT IS STILL TOO LOW, AND NO ORDERS FOR PAIN MEDICATION GIVEN. DR HODGE SAID OK TO GIVE BENADRYL FOR ITCHING.
[2017-08-19] MEDS: diphenhydrAMINE 50 MG/ML VIAL IVP PRN ×6 (01:25→22:30)
--- NOTE | 2017-08-19 04:00 | NUR ---
VITAL SIGNS WNL. PT STABLE, NO SIGNS OF DISTRESS NOTED AT THIS TIME. BED IN LOWEST POSITION, CALL LIGHT WITHIN REACH. WILL CONTINUE TO MONITOR.
[2017-08-19 06:51] LABS: BASOPHILS % (AUTO) 0.4 % (0.0-2.0); EOSINOPHILS # (AUTO) 0.3 K/uL (0-0.4); HEMATOCRIT 25.5 % (36-48); HEMOGLOBIN 8.4 g/dL (12.0-16.0); LYMPHOCYTES # (AUTO) 1.7 K/uL (2.5-16.5); LYMPHOCYTES % (AUTO) 39.5 % (20.5-51.1); MEAN CORPUSCULAR HEMOGLOBIN 29 pg (27-31); MEAN CORPUSCULAR HGB CONC 33 g/dL (33-37); MEAN CORPUSCULAR VOLUME 85.9 fL (80-94); MONOCYTES # (AUTO) 0.4 K/uL (0.8-1.0); MONOCYTES % (AUTO) 10.2 % (1.7-9.3); NEUTROPHILS # (AUTO) 1.8 K/uL (1.8-7.7); NEUTROPHILS % (AUTO) 42.9 % (42.2-75.2); PLATELET COUNT (AUTO) 284 K/uL (140-450); RED BLOOD CELL COUNT(AUTO) 2.96 MIL/uL (4.20-5.40); RED CELL DISTRIBUTION WIDTH 13.9 % (11.6-13.7); WHITE BLOOD COUNT (AUTO) 4.3 K/uL (4.8-10.8)
[2017-08-19] MEDS: PANTOPRAZOLE 40 MG TABEC PO SCH ×2 (06:57→16:04)
[2017-08-19 07:11] LABS: ALBUMIN 2.5 g/dL (3.4-5.0); ANION GAP 11.7 (8-16); CARBON DIOXIDE 25.9 mmol/L (21-32); CREATININE 0.8 mg/dL (0.6-1.3); POTASSIUM 3.6 mmol/L (3.5-5.1); TOTAL BILIRUBIN 0.3 mg/dL (0.0-1.0)
--- NOTE | 2017-08-19 07:15 | NUR ---
RECEIVED BEDSIDE REPORT FROM LINING CASER NURSE. PATIENT IS AWAKE, ALERT AND ORIENTEDX4. NO SIGNS OF DISTRESS ON ROOM AIR. AMBULATES WITH ASSISTANCE TO RESTROOM. IV ON L FA 22G INFUSING D5/NACL .45 AT 75ML/HR. IV IS CLEAN, DRY AND INTACT. PICC LINE ON [place], NOT BEING USED. DOCTOR WILL INSPECT IF THERE IS AN ISSUE. PICC IS USED FOR CHEMO AND THERE IS PAIN AT THE SITE. BED IN LOW POSITION. CALL LIGHT WITHIN REACH. WILL CONTINUE TO MONITOR THE PATIENT.
--- NOTE | 2017-08-19 08:00 | NUR ---
GAVE PATIENT BENADRYL. SHE COMPLAINS OF SEVERE ITCHINESS. PATIENT TOLERATED WELL. WILL CONTINUE TO MONITOR THE PATIENT.
--- NOTE | 2017-08-19 09:03 | NUR ---
PATIENT HAS BEEN SCREENED AND CATEGORIZED MODERATE NUTRITION RISK. PATIENT WILL BE SEEN WITHIN 3-5 DAYS OF ADMISSION. 08/21/17 08/23/[address]
[2017-08-19] MEDS: ENOXAPARIN 40 MG/0.4 ML SYR SUBQ SCH (09:20)
--- NOTE | 2017-08-19 09:20 | NUR ---
REMOVED PICC LINE. CHARGE NURSE RODRIGO SAW THE ORDERS THAT WAS ACKNOWLEDGED BY BAND MACHINE OPERATOR NURSE BUT DID NOT READ THE ORDER. PICC LINE SENT TO THE LAB. ADMINISTERED MEDS. PATIENT TOLERATED WELL. NO OTHER COMPLAINTS AT THIS TIME.
[2017-08-19] MEDS: MORPHINE SULFATE 4 MG/ML SYR IVP PRN ×3 (10:35→18:15)
[2017-08-19] MEDS: DEXT 5% / NACL 0.45% 1,000 ML IV SCH ×2 (10:43→23:55)
--- NOTE | 2017-08-19 10:45 | NUR ---
ADMINISTERED PRN MEDS. PATIENT TOLERATING WELL. VITALS ARE WITHIN NORMAL LIMITS. WILL RECHECK AGAIN. IV IS CLEAN, DRY AND INTACT.
--- NOTE | 2017-08-19 12:54 | NUR ---
ADMINISTERED MEDS. PATIENT TOLERATING WELL. IV IS CLEAN, DRY AND INTACT. WILL CONTINUE TO MONITOR THE PATIENT.
--- NOTE | 2017-08-19 14:06 | NUR ---
FAXED INITIAL REVIEW TO [facility] [phone] PHONE TOMASZ [phone]
--- NOTE | 2017-08-19 14:39 | NUR ---
RECIEVED A CALL FROM YUNIOR FROM [facility]. SHE SAID THIS IS ONE OF HER PATIENTS. PHONE [phone].
--- NOTE | 2017-08-19 15:10 | NUR ---
PATIENT IS SITTING IN BED WATCHING A MOVIE. NO SIGNS OF DISTRESS ON ROOM AIR. NO COMPLAINTS AT THIS TIME. WILL CONTINUE TO MONITOR THE PATIENT.
--- NOTE | 2017-08-19 16:05 | NUR ---
ADMINISTERED MED. PATIENT TOLERATED WELL. NO COMPLAINTS AT THIS TIME. WILL CONTINUE TO MONITOR THE PATIENT.
--- NOTE | 2017-08-19 17:26 | NUR ---
PATIENT IS ASKING FOR A HEATING PAD FOR HER LEG. PAGED DR JUAN. WILL AWAIT HIS CALL. WILL CONTINUE TO MONITOR THE PATIENT.
--- NOTE | 2017-08-19 19:26 | NUR ---
GAVE REPORT TO ENVIRONMENTAL LEAD NURSE. PATIENT IS ENDORSED IN STABLE CONDITION.
--- NOTE | 2017-08-19 19:30 | NUR ---
RECEIVED PT REPORT AT BEDSIDE FROM [facility] NURSE MONICA FOR CONTINUITY OF CARE. PT IS AAOX4. PT IS RESTING HAS A HEAT PACK SET UP FOR LEG PAIN D/T CANCER. PT HAS COLOSTOMY BAG LLQ W/ MINIMAL FECES. IV LFA 22G D5 1/2NS. PT HAD PICC LINE REMOVED TODAY AND SENT FOR ANALYSIS. PT HAS NO SOB NO S/S OF DISTRESS. ON RA. BEDSIDE COMMODE ON SIDE OF BED. BED LOWERED CALL LIGHT WITHIN REACH. WILL CONTINUE TO MONITOR.
--- NOTE | 2017-08-19 21:00 | NUR ---
PT MEDICATION CEFAZOLIN WAS CHANGED TO 2MG. GOT VERBAL ORDER FROM MD TO GIVE NEW ANTIBIOTIC AMOUNT. WILL CONTINUE TO MONITOR.
--- NOTE | 2017-08-19 22:20 | NUR ---
PER PT REQUEST INFUSE BENADRYL FIRST AND MORPHINE AFTER. SHE ENDED UP HAVING SMALL RASH ITCHYNESS ABOVE IV SITE. TOLD HER NOT TO SCRATCH IT AND I APPLIED ICE. WILL CONTINUE TO MONITOR.
[2017-08-19] MEDS ORDERED: MORPHINE SULFATE 4 MG/ML SYR ONE (22:27)
[2017-08-19] MEDS: MORPHINE SULFATE 10 MG/ML SYR IVP PRN (22:29)
[2017-08-20] VITALS (7 sets, daily range): BP systolic 105–134; BP diastolic 69–88
--- NOTE | 2017-08-20 00:20 | NUR ---
PT SLEEPING WILL CONTINUE TO MONITOR.
[2017-08-20] MEDS ORDERED: MORPHINE SULFATE 4 MG/ML SYR ONE ×2 (02:37→06:33)
[2017-08-20] MEDS: MORPHINE SULFATE 10 MG/ML SYR IVP PRN ×2 (02:40→06:42)
[2017-08-20] MEDS: diphenhydrAMINE 50 MG/ML VIAL IVP PRN ×6 (02:40→22:25)
[2017-08-20] MEDS ORDERED: ceFAZolin 1,000 MG VIAL ONE (04:25)
--- NOTE | 2017-08-20 06:03 | NUR ---
PT SLEEPING NO SOB NO S/S OF DISTRESS. WILL CONTINUE TO MONITOR.
[2017-08-20] MEDS: PANTOPRAZOLE 40 MG TABEC PO SCH ×2 (06:41→16:32)
[2017-08-20 06:47] LABS: BASOPHILS % (AUTO) 0.5 % (0.0-2.0); EOSINOPHILS # (AUTO) 0.2 K/uL (0-0.4); EOSINOPHILS % (AUTO) 4.2 % (0.0-4.0); HEMATOCRIT 31.7 % (36-48); HEMOGLOBIN 10.7 g/dL (12.0-16.0); LYMPHOCYTES % (AUTO) 35.2 % (20.5-51.1); MEAN CORPUSCULAR HEMOGLOBIN 29 pg (27-31); MEAN CORPUSCULAR HGB CONC 34 g/dL (33-37); MEAN CORPUSCULAR VOLUME 85.2 fL (80-94); MONOCYTES # (AUTO) 0.6 K/uL (0.8-1.0); MONOCYTES % (AUTO) 10.8 % (1.7-9.3); NEUTROPHILS # (AUTO) 2.8 K/uL (1.8-7.7); NEUTROPHILS % (AUTO) 49.3 % (42.2-75.2); RED BLOOD CELL COUNT(AUTO) 3.73 MIL/uL (4.20-5.40); WHITE BLOOD COUNT (AUTO) 5.6 K/uL (4.8-10.8)
[2017-08-20 06:59] LABS: PLATELET COUNT (AUTO) 349 K/uL (140-450)
--- NOTE | 2017-08-20 07:32 | NUR ---
GAVE REPORT TO DAYSHIFT NURSE AT BEDSIDE FOR CONTINUITY OF CARE.
--- NOTE | 2017-08-20 07:34 | NUR ---
RECEIVED REPORT FROM KANIKA AGUILA. PT IN STABLE CONDITION.
[2017-08-20 07:44] LABS: ANION GAP 13.8 (8-16); CARBON DIOXIDE 26.5 mmol/L (21-32); CREATININE 0.8 mg/dL (0.6-1.3); POTASSIUM 3.3 mmol/L (3.5-5.1)
--- NOTE | 2017-08-20 07:57 | NUR ---
MORNING ASSESSMENT COMPLETE. PT IN STABLE CONDITION NOT IN ANY ACUTE DISTRESS. PT S1 S2. LUNGS SOUNDS CLEAR BILATERALLY INSPIRATORY AND EXPIRATORY. EYES REACT BRISKLY TO LIGHT. SKIN WARM AND DRY AND COLOR WITHIN NORMAL LIMITS. CAP REFILL < 3S BOWEL SOUNDS PRESENT X4 QUADRANTS. NO OPEN WOUNDS OR REDNESS ON BONY PROMINENCES. NO EDEMA. PT STATES NO CHEST PAIN OR EMESIS. PT SITTING UP IN BED WATCHING TV. BED LOCKED IN LOW POSITION. CALL BUSCH WITHIN REACH. WILL CONTINUE TO MONITOR.
[2017-08-20] MEDS ORDERED: MORPHINE SULFATE 4 MG/ML SYR IVP PRN (08:10)
--- NOTE | 2017-08-20 09:05 | NUR ---
PT STATES SHARP PAIN AND BURNING AT IV SITE RIGHT WRIST. FLUSHED WITH 3ML NS PAIN STILL OCCURRING. IV SITE HAS NO REDNESS AND IS WARM. IV SITE RIGHT WRIST DC AT 0910. NEW IV INSERTED AT LEFT FOREARM 22G. ATTEMPTED IV INSERTION TWICE. PT TOLERATED WELL. NEW IV SITE HAS EXTENSION AND 2 PORTS. PORTS FLUSHED FOR PATENCY. REINSERTED IV FLUIDS. PT NOT IN ANY ACUTE DISTRESS. WILL CONTINUE TO MONITOR.
[2017-08-20] MEDS: ENOXAPARIN 40 MG/0.4 ML SYR SUBQ SCH (09:25)
--- NOTE | 2017-08-20 10:15 | NUR ---
PT STATES IN PAIN AND MEDICATION DOES NOT LAST LONG ENOUGH. ASKED TO CHANGE FREQUENCY TO Q3 INSTEAD OF Q4. DR. HUTCHINSON CALLED BACK AND APPROVED MEDICATION FREQUENCY TORB.
[2017-08-20] MEDS ORDERED: POTASSIUM CHLORIDE 10 MEQ TABER PO SCH (10:30)
[2017-08-20] MEDS: ONDANSETRON 4 MG/2 ML VIAL IVP PRN ×3 (10:53→18:06)
--- NOTE | 2017-08-20 12:00 | NUR ---
1300 MEDS GIVEN. PT TOLERATED WELL. PT SITTING UP IN BED TALKING ON THE PHONE WATCHING TV. PT NOT IN ANY ACUTE DISTRESS. WILL CONTINUE TO MONITOR.
[2017-08-20] MEDS: DEXT 5% / NACL 0.45% 1,000 ML IV SCH (13:15)
[2017-08-20] MEDS: MORPHINE SULFATE 4 MG/ML SYR IVP PRN ×3 (14:12→20:21)
--- NOTE | 2017-08-20 15:00 | NUR ---
MEDICATIONS GIVEN. PT SITTING UP WATCHING TV. AT BEDSIDE. PT NOT IN ANY ACUTE DISTRESS VS STABLE. WILL CONTINUE TO MONITOR.
--- NOTE | 2017-08-20 17:22 | NUR ---
ADMINISTERED MORPHINE 6MG IV PUSH ORDERED FOR PAIN 7 OUT OF 10. PULLED OUT 8MG IN THE PYXIS MACHINE. WASTED 2MG AND WITNESSED BY PRECEPTOR MARCOS AGUILA.
--- NOTE | 2017-08-20 17:25 | NUR ---
PAIN MED GIVEN. PT TOLERATED WELL. AT BEDSIDE. PT SITTING UP PLAYING ON HER PHONE. WILL CONTINUE TO MONITOR.
--- NOTE | 2017-08-20 19:26 | NUR ---
REPORT GIVEN TO BILINGUAL OFFICE ASSISTANT NURSE, PT IN STABLE CONDITION.
--- NOTE | 2017-08-20 19:30 | NUR ---
RECEIVED PT IN STABLE CONDITION FROM AM NURSE. AWAKE,ALERT AND ORIENTED X4. ON TELE MONITOR. AMBULATORY. HAS FAMILY AT BEDSIDE. WITH NO C.O ANY DISCOMFORT NOR PAIN NOTED AT THIS TIME. HAS IVF INFUSING WELL ON THE RT FA# 22. WITH COLOSTOMY BAG ON LLQ. CLEAR AND PATENT. PLAN OF CARE DISCUSSED AND VERBALIZED UNDERSTANDING. BED ON LOW POSITION, CALL LIGHT PLACED WITHIN EASY REACH. INSTRUCTED TO CALL FOR ANY NEEDS AND ASSISTANCE . WILL CONTINUE TO MONITOR.
--- NOTE | 2017-08-20 20:00 | NUR ---
PAGED DR. JUAN EARLIER, DR. BOWER TRAFFIC DIRECTOR. CALLED BACK AND MADE AWARE ABOUT PT CONCERN REGARDING TAKING MORPHINE SAME TIME WITH BENADRYL AND ZOFRAN. / CHELI REFUSED TO HAVE THE FREQUENCY CHANGE AT THIS TIME.
--- NOTE | 2017-08-20 22:00 | NUR ---
PT WANTS THE COLOSTOMY BAG CHANGE BUT WE DON'T HAVE THE KIND OF BAG THAT SHE HAS. FAMILY TO BRING ONE FROM HOME.
[2017-08-21] MEDS: MORPHINE SULFATE 4 MG/ML SYR IVP PRN ×5 (00:01→20:44)
--- NOTE | 2017-08-21 01:00 | NUR ---
PT STILL AWAKE. VITAL SIGNS STABLE. NO MORE C/O ANY PAIN AT THIS TIME.
[2017-08-21] MEDS: diphenhydrAMINE 50 MG/ML VIAL IVP PRN ×4 (02:32→20:44)
--- NOTE | 2017-08-21 02:32 | NUR ---
PT C/O ITCHING AGAIN . MEDICATED ORDERED . WILL CONTINUE TO MONITOR.
[2017-08-21] MEDS: DEXT 5% / NACL 0.45% 1,000 ML IV SCH ×3 (02:35→21:55)
[2017-08-21 04:08] VITALS: BP 100/67
--- NOTE | 2017-08-21 05:11 | NUR ---
MADE ROUNDS. PT IS ASLEEP. NO S/S OF ANY DISCOMFORT /PAIN NOTED.
[2017-08-21] MEDS: PANTOPRAZOLE 40 MG TABEC PO SCH ×2 (06:45→15:40)
--- NOTE | 2017-08-21 07:30 | NUR ---
ENDORSED PT IN STABLE CONDITION TO AM NURSE.
--- NOTE | 2017-08-21 07:35 | NUR ---
RECEIVED REPORT FOR THE PT FROM PARADICHLOROBENZENE MACHINE OPERATOR NURSE, MEDHAT, PT IS ASLEEP ON THE BED, WITH AN IV LINE AT RIGHT FOREARM G. 22 AT D5 1/2 NS AT 75ML/HR INTACT. PT HAS A COLOSTOMY BAG ON HER LEFT SIDE. SIDE RAILS UP AND CALL LIGHT WITHIN REACH. NO SIGN OF DISTRESS NOTED. WILL CONTINUE TO MONITOR..
[2017-08-21 08:00] VITALS: BP 108/74
--- NOTE | 2017-08-21 08:10 | NUR ---
PT IS AWAKE AND SEATED ON THE BED, VITAL SIGNS TAKEN AND NO SIGN OF DISTRESS NOTED. CALL LIGHT WITHIN REACH. WILL MONITOR.
[2017-08-21] MEDS: ENOXAPARIN 40 MG/0.4 ML SYR SUBQ SCH (09:08)
--- NOTE | 2017-08-21 09:25 | NUR ---
PT WAS SEEN BY DR. HUTCHINSON AND SPOKE TO THE PT. DR. HUTCHINSON TOLD THE PT THAT THE PICC LINE WILL BE INSERTED ILAN AND THE PT MIGHT GO HOME BY ILAN.
--- NOTE | 2017-08-21 09:32 | NUR ---
PT VERBALIZED A PAIN RATE OF 10/10 AND MEDICATIONS WERE GIVEN TO THE PT VIA IV PUSH. PT TOLERATED IT. NO SIGN OF DISCOMFORT NOTED. WILL MONITOR.
--- NOTE | 2017-08-21 09:40 | NUR ---
DR. HUTCHINSON ORDERED FOR AN INSERTION OF THE PICC LINE. ORDER ACKNOWLEDGED.
--- NOTE | 2017-08-21 11:47 | NUR ---
PT IS AWAKE AND EATING ORANGE, ASKED FOR A CUP OF HOT WATER AND SPLENDA. PT WAS GIVEN HOT WATER WITH TEA AND SPLENDA. ALL NEEDS ARE MET AT THIS TIME.
[2017-08-21 12:00] VITALS: BP 120/71
--- NOTE | 2017-08-21 12:30 | NUR ---
CALLED PICC LINE NURSE [phone] LEFT A MESSAGE WAITING FOR CALL BACK
--- NOTE | 2017-08-21 12:46 | NUR ---
PT IS SLEEPING LYING ON THE BED, SIDE RAILS ARE UP AND CALL LIGHT WITHIN REACH. NO SIGN OF DISTRESS NOTED. WILL CONTINUE TO MONITOR.
--- NOTE | 2017-08-21 13:08 | NUR ---
CALLED PHARMACY AND SPOKE TO KEN REGARDING THE PT'S DUE CEFAZOLIN. KEN ACKNOWLEDGED AND SAID THAT SHE WILL BE SENDING IT.
--- NOTE | 2017-08-21 13:29 | NUR ---
PT IS AWAKE SEATED ON THE BED, MEDICATION GIVEN THRU IV PIGGYBACK AND PT TOLERATED IT WELL. NO SIGN OF DISTRESS NOTED. CALL LIGHT WITHIN REACH SIDE RAILS ARE UP. WILL,CONTINUE TO MONITOR.
--- NOTE | 2017-08-21 14:00 | NUR ---
PT WAS ASSISTED TO THE COMMODE AND BED WAS FIXED BY THE STUDENT NURSES, PT WAS GIVEN A WARM BLANKET AND PT WITH HER FAMILY MEMBERS ON THE BEDSIDE. NO SIGN OF DISTRESS NOTED. CALL LIGHT WITHIN REACH AND ALL NEEDS ARE MET AT THIS TIME. WILL MONITOR.
--- NOTE | 2017-08-21 14:10 | NUR ---
CALLED PICC LINE NURSE AGAIN SHE STATED THE NURSE WILL COME AFTER 8PM
--- NOTE | 2017-08-21 14:45 | NUR ---
PT IS AWAKE SEATD ON THE BED WITH FAMILY MEMBERS ON THE BEDSIDE, PT VERBALIZED PAIN RATE OF 10/10 IN CHEST AND LEGS. PT ASKED FOR A PAIN MEDICATION.
[2017-08-21 15:07] LABS: PROTHROMBIN TIME 12.2 secs (10.8-13.4)
--- NOTE | 2017-08-21 15:12 | NUR ---
PT IS AWAKE AND SEATED ON THE BED WITH FAMILY MEMBERS ON THE BEDSIDE, BENADRYL GIVEN AND PAIN MEDICATION GIVEN ALSO. PT TOLERATED IT AND NO SIGN OF DISTRESS NOTED. WILL MONITOR.
[2017-08-21 16:00] VITALS: BP 117/75
--- NOTE | 2017-08-21 19:30 | NUR ---
ENDORSED PT TO TILER'S ASSISTANT NURSE MEDHAT, FOR CONTINUITY OF CARE. PT IS STABLE AT THIS TIME.
--- NOTE | 2017-08-21 19:31 | NUR ---
RECEIVED PT FROM AM NURSE AT BEDSIDE FOR CONTINUITY OF CARE. PT STABLE AT THIS TIME. FAMILY AT BEDSIDE. PT ON TELE MONITOR WITH IV FLUID INFUSING WELL ON RT FA 22 G.IV SITE CLEAR AND PATENT. INTRODUCED SELF TO PT AND UPDATED BOARD. POC DISCUSSED WITH PT. PT VERBALIZED UNDERSTANDING. ALL SAFETY MEASURE IN PLACE. WILL CONTINUE TO MONITOR.
[2017-08-21 20:00] VITALS: BP 130/78
--- NOTE | 2017-08-21 20:00 | NUR ---
PT COLOSTOMY BAG CHANGED. OSTOMY PINK AND MOIST.
--- NOTE | 2017-08-21 20:55 | NUR ---
PICC LINE NURSE HERE TO START INSERTION OF NEW PICC LINE. US TECH AT BEDSIDE.
--- NOTE | 2017-08-21 21:30 | NUR ---
PICC LINE INSERTION UNSUCCESSFUL DUE TO AXILLARY VEIN RESISTANCE. PROCEDURE NOT TOLERATED WELL BY PT. PER PICC LINE NURSE, PROCEDURE WILL BE DONE TOMORROW. WILL NOTIFY
--- NOTE | 2017-08-21 22:50 | NUR ---
DR JUAN WAS PAGED , DR HALEY BIOMEDICAL ENGINEERING PROFESSOR. CALLED BACK. MADE AWARE ABOUT UNSUCCESSFUL INSERTION OF PICC LINE TONIGHT BY PICC LINE NURSE SAADIA, DUE TO RESISTANCE IN THE AXILLARY VEIN.
[2017-08-22] VITALS: BP 141/78
[2017-08-22] MEDS: diphenhydrAMINE 50 MG/ML VIAL IVP PRN ×5 (01:16→20:14)
[2017-08-22] MEDS: MORPHINE SULFATE 4 MG/ML SYR IVP PRN ×5 (01:17→20:15)
--- NOTE | 2017-08-22 02:20 | NUR ---
MADE ROUNDS. PT ASLEEP. NO S/ OF ANY PAIN NOTED. WILL CONTINUE TO MONITOR.
[2017-08-22 04:00] VITALS: BP 124/73
--- NOTE | 2017-08-22 04:00 | NUR ---
VITAL SIGNS STABLE . NO S/S OF ANY DISCOMFORT AT THIS TIME.
--- NOTE | 2017-08-22 06:00 | NUR ---
PT IS AWAKE. C/O PAIN MEDICATED EARLIER @0551. WILL CONTINUE TO MONITOR.
[2017-08-22 06:21] LABS: BASOPHILS % (AUTO) 0.5 % (0.0-2.0); EOSINOPHILS # (AUTO) 0.3 K/uL (0-0.4); EOSINOPHILS % (AUTO) 7.9 % (0.0-4.0); HEMATOCRIT 30.4 % (36-48); HEMOGLOBIN 10.2 g/dL (12.0-16.0); LYMPHOCYTES # (AUTO) 1.4 K/uL (2.5-16.5); LYMPHOCYTES % (AUTO) 36.4 % (20.5-51.1); MEAN CORPUSCULAR HEMOGLOBIN 29 pg (27-31); MEAN CORPUSCULAR HGB CONC 34 g/dL (33-37); MEAN CORPUSCULAR VOLUME 84.6 fL (80-94); MONOCYTES # (AUTO) 0.4 K/uL (0.8-1.0); MONOCYTES % (AUTO) 11.2 % (1.7-9.3); NEUTROPHILS # (AUTO) 1.7 K/uL (1.8-7.7); PLATELET COUNT (AUTO) 379 K/uL (140-450); RED CELL DISTRIBUTION WIDTH 13.7 % (11.6-13.7); WHITE BLOOD COUNT (AUTO) 3.8 K/uL (4.8-10.8)
[2017-08-22] MEDS: PANTOPRAZOLE 40 MG TABEC PO SCH ×2 (06:57→16:34)
[2017-08-22 06:59] LABS: ANION GAP 13.4 (8-16); CARBON DIOXIDE 27.3 mmol/L (21-32); CREATININE 0.7 mg/dL (0.6-1.3); POTASSIUM 3.7 mmol/L (3.5-5.1)
--- NOTE | 2017-08-22 07:30 | NUR ---
ENDORSED PT IN STABLE CONDITION TO AM NURSE.
--- NOTE | 2017-08-22 07:31 | NUR ---
RECEIVED REPORT FROM INSPECTOR BALANCE WHEEL MOTION NURSE MEDHAT AT BEDSIDE FOR CONTINUITY OF CARE. PT IS AWAKE AND ORIENTED X4. INTRODUCED SELF AND UPDATED BOARD. PT GOT UP TO USE BSC AND VOIDED. CHANGED COLOSTOMY BAG. EMPTIED 50ML OF BROWN FORMED STOOL. IV TO R FA 22G INTACT. PT DENIES PAIN. NO SOB. ON RA WITH O2 SAT 100%. LUNG SOUNDS CLEAR ON AUSCULTATION. PT SITTING UP IN BED EATING BREAKFAST. NO SIGNS OF DISTRESS. BED IN LOW POSITION, WHEELS LOCKED, CALL LIGHT WITHIN REACH. WILL CONTINUE TO MONITOR.
[2017-08-22 08:00] VITALS: BP 117/64
[2017-08-22] MEDS: ENOXAPARIN 40 MG/0.4 ML SYR SUBQ SCH (09:24)
[2017-08-22] MEDS: ONDANSETRON 4 MG/2 ML VIAL IVP PRN (09:55)
--- NOTE | 2017-08-22 09:55 | NUR ---
PT COMPLAINED OF PAIN 9/10 AND NAUSEA. ADMINISTERED ZOFRAN, MORPHINE AND BENADRYL. PT TOLERATED WELL. IV TO R FA 22G PATENT. FLUSHED WITH 10CC NS. NO OTHER COMPLAINTS AT THIS TIME. CALL LIGHT WITHIN REACH. WILL CONTINUE TO MONITOR.
[2017-08-22 12:00] VITALS: BP 100/63
--- NOTE | 2017-08-22 12:02 | NUR ---
CHECKED ON PT IN ROOM. SLEEPING WITH VISIBLE RESPIRATIONS. PT DENIES PAIN. DENIES NAUSEA. BED IN LOW POSITION, CALL LIGHT WITHIN REACH. WILL CONTINUE TO MONITOR.
--- NOTE | 2017-08-22 14:41 | NUR ---
PATIENT STATED SHE WANTED TO BE SEDATED FOR PICC LINE INSERTION. SPOKE WITH DR MENDEZ PT'S ONCOLOGIST RECOMMENDED PORT A CATH TO BE INSERTED . NOTIFIED PATIENT AND PT AGREED. NOTIFIED DR HUTCHINSON TO CONSULT THE SURGEON AND WILL CONTACT THE SURGEON BRAZER CRAWLER TORCH.
[2017-08-22 16:00] VITALS: BP 91/51
--- NOTE | 2017-08-22 16:13 | NUR ---
FAXED CONCURRENT REVIEW TO [place] [phone] PHONE TOMASZ [phone]
--- NOTE | 2017-08-22 18:00 | NUR ---
CHANGED COLOSTOMY BAG. 100ML OF BROWN SOFT STOOL NOTED. TOLERATED WELL. PT LYING IN BED WATCHING TV. NO SIGNS OF DISTRESS. WILL CONTINUE TO MONITOR.
[2017-08-22] MEDS: DEXT 5% / NACL 0.45% 1,000 ML IV SCH (18:35)
--- NOTE | 2017-08-22 19:20 | NUR ---
REPORT RECEIVED FROM KAYLA AGUILA. PT NOT IN ACUTE DISTRESS. WILL CONTINUE TO MONITOR.
--- NOTE | 2017-08-22 19:25 | NUR ---
ENDORSED PT TO TIPPLE SUPERVISOR NURSE ROCIO AT BEDSIDE FOR CONTINUITY OF CARE. PT IN STABLE CONDITION.
--- NOTE | 2017-08-22 19:45 | NUR ---
INITIAL SHIFT ASSESSMENT COMPLETE. EYES PERRL. S1 S2 REGULAR HEART SOUNDS. LUNGS CLEAR BILATERALLY. BOWEL SOUNDS PRESENT X4 QUADRANTS. SKIN INTACT DRY AND WARM. COLOSTOMY INTACT AND RED. IV SITE PATENT, RUNNING, AND RETAPED. CAP REFILL < 3S. VS WITHIN NORMAL LIMITS AND PT NOT IN ANY ACUTE DISTRESS. BED LOCKED IN LOW POSITION. CALL BUSCH WITHIN REACH. WILL CONTINUE TO MONITOR.
[2017-08-22 20:00] VITALS: BP 121/67
--- NOTE | 2017-08-22 20:05 | NUR ---
PM MEDS GIVEN. PT TOLERATED WELL. WILL CONTINUE TO MONITOR.
--- NOTE | 2017-08-22 23:13 | NUR ---
CHECKED IN ON PT. PT NOT IN ANY ACUTE DISTRESS. BED LOCKED IN LOW POSITION. WILL CONTINUE TO MONITOR.
[2017-08-23] VITALS: BP 105/69
--- NOTE | 2017-08-23 | NUR ---
MEDICATION GIVEN. PT TOLERATED WELL. WILL CONTINUE TO MONITOR.
[2017-08-23] MEDS: diphenhydrAMINE 50 MG/ML VIAL IVP PRN ×6 (00:02→22:20)
[2017-08-23] MEDS: MORPHINE SULFATE 4 MG/ML SYR IVP PRN ×7 (00:03→21:10)
--- NOTE | 2017-08-23 02:05 | NUR ---
PT SLEEPING. NOT IN ANY ACUTE DISTRESS. WILL CONTINUE TO MONITOR.
[2017-08-23 04:00] VITALS: BP 128/65
--- NOTE | 2017-08-23 05:05 | NUR ---
PT SLEEPING. NOT IN ANY ACUTE DISTRESS. WILL CONTINUE TO MONITOR.
[2017-08-23 06:41] LABS: BASOPHILS % (AUTO) 0.5 % (0.0-2.0); EOSINOPHILS # (AUTO) 0.3 K/uL (0-0.4); EOSINOPHILS % (AUTO) 9.2 % (0.0-4.0); HEMATOCRIT 30.9 % (36-48); HEMOGLOBIN 10.1 g/dL (12.0-16.0); LYMPHOCYTES # (AUTO) 1.3 K/uL (2.5-16.5); MEAN CORPUSCULAR HEMOGLOBIN 28 pg (27-31); MEAN CORPUSCULAR HGB CONC 33 g/dL (33-37); MEAN CORPUSCULAR VOLUME 85.3 fL (80-94); MONOCYTES # (AUTO) 0.4 K/uL (0.8-1.0); MONOCYTES % (AUTO) 9.9 % (1.7-9.3); NEUTROPHILS # (AUTO) 1.7 K/uL (1.8-7.7); NEUTROPHILS % (AUTO) 45.4 % (42.2-75.2); PLATELET COUNT (AUTO) 366 K/uL (140-450); RED BLOOD CELL COUNT(AUTO) 3.62 MIL/uL (4.20-5.40); RED CELL DISTRIBUTION WIDTH 13.9 % (11.6-13.7); WHITE BLOOD COUNT (AUTO) 3.7 K/uL (4.8-10.8)
[2017-08-23 06:50] LABS: ANION GAP 11.7 (8-16); CARBON DIOXIDE 26.9 mmol/L (21-32); CREATININE 0.8 mg/dL (0.6-1.3); POTASSIUM 3.6 mmol/L (3.5-5.1)
[2017-08-23] MEDS: PANTOPRAZOLE 40 MG TABEC PO SCH ×2 (06:57→16:09)
--- NOTE | 2017-08-23 07:30 | NUR ---
REPORT GIVEN TO MARCOS AGUILA. PT IN STABLE CONDITION.
--- NOTE | 2017-08-23 07:31 | NUR ---
REPORT RECEIVED FROM ASSISTANT ANALYST NURSE, PT AAOX4, RESTING IN BED IN NAD, ON THE PHONE, TALKING WITHOUT PROBLEM. ALL SAFETY MEASURES IN PLACE, PLAN OF CARE REVIEWED, DENIES PAIN, REPORTS ITCHING, WILL GIVE BENADRYL, WILL CONTINUE TO MONTOR.
[2017-08-23] MEDS: DEXT 5% / NACL 0.45% 1,000 ML IV SCH ×2 (07:55→21:15)
[2017-08-23 08:00] VITALS: BP 101/48
[2017-08-23] MEDS: ENOXAPARIN 40 MG/0.4 ML SYR SUBQ SCH (08:32)
--- NOTE | 2017-08-23 08:33 | NUR ---
BENADRYL GIVEN FOR ITCHING, LOVENOX HELD FOR PORT-A-CATH PLACEMENT TODAY.
[2017-08-23 12:00] VITALS: BP 112/52
--- NOTE | 2017-08-23 13:10 | NUR ---
DR WILL TO BEDSIDE, WILL HOLD OFF ON PORT-A-CATH PLACEMENT UNTIL CLEARED BY INFECTIOUS DISEASE DR GALVEZ. WILL CLARIFY WITH DR GALVEZ.
[2017-08-23] MEDS: ONDANSETRON 4 MG/2 ML VIAL IVP PRN ×2 (13:41→18:02)
--- NOTE | 2017-08-23 13:58 | NUR ---
08/23/17 RD INITIAL ASSESSMENT COMPLETED PLEASE REFER TO NUTRITION ASSESSMENT UNDER CARE ACTIVITY FOR ESTIMATED NUTRITIONAL NEEDS. 1. CONTINUE NPO DIET MEDICALLY NECESSARY 2. RECOMMEND REGULAR DIET WHEN PT BACK ON PO DIET. 3. RECOMMEND MORNING AND AFTERNOON SNACKS. 4. RD TO FOLLOW-UP 3-5 DAYS, MODERATE RISK ENMA POSADA RD
--- NOTE | 2017-08-23 14:06 | NUR ---
Kenny TOLBERT CM FROM [facility] AND WAS PROVIDED WITH VERBAL UPDATE ON PT'S CLINICAL STATUS AND THAT PT NEEDS A MEDIPORT OR PICC BUT ID HAS INDICATED THAT PT TO RECEIVE A COURSE OF IV ANTIBIOTICS PRIOR TO INSERTION OF A LINE.
--- NOTE | 2017-08-23 14:08 | NUR ---
DR GALVEZ TO BEDSIDE FOR EVAL, PT NEEDS ONE MORE WEEK OF ANTIBIOTIC UNTIL CLEAR FOR PORT-A-CATH PLACEMETN, ANCEF 2G Q8H IV X 7DAYS, OR IF PT GOES HOME ANTIBIOTIC CAN BE CHANGED TO ROCEPHIN 1G QD IV X 7DAYS PER DR GALVEZ, WILL NOTIFY DR HUTCHINSON.
--- NOTE | 2017-08-23 15:37 | NUR ---
PER ROYA AGUILACAPACITOR PACK PRESS OPERATOR DIRECTOR, VERBAL REPORT GIVEN TO TOMASZ FROM [facility].
--- NOTE | 2017-08-23 15:44 | NUR ---
RECEIVED ORDER FOR IV ROCEPHIN IV GM1 DAILY X 7 DAYS. I SPOKE WITH TOMASZ FROM [facility] AND FAXED HER THE ORDER. SHE SAID TO FAX THE ORDER AND FACE SHEET TO [facility] AT [phone] PHONE [phone]. FAXED ORDER TO THEM.
--- NOTE | 2017-08-23 15:50 | NUR ---
DR HUTCHINSON PAGED AND CALLED BACK, RANDY START ROCEPHIN 1G Q 24HR IV, CANCEL ANCEF, OK TO DC HOME TOMORROW WITH HOMEHEALTH IV ANTIBIOTIC ROCEPHIN 1G IV Q24HR X7DAYS WTIH PERIPHERAL IV.
[2017-08-23 16:00] VITALS: BP 98/53
--- NOTE | 2017-08-23 16:40 | NUR ---
Marketing Production Coordinator Note: I called and spoke with Mehdi from [facility] (home infusion) , he stated he received referral previously faxed from foster care case manager Mariama. He stated they are able to deliver Rocephin to patient's home and they will provide nursing staff. I informed him we are anticipating for patient to be discharged tomorrow, foster care case manager Mariama aware.
--- NOTE | 2017-08-23 16:43 | NUR ---
Controller Operations And Hr Manager Notes: I met with patient to verify address listed on face sheet, and discussed MD order for home health for Rocephine Patient is on agreement with home health services.
--- NOTE | 2017-08-23 18:02 | NUR ---
PAIN MED GIVEN FOR KNEE PAIN AND GEN BODY PAIN, ALSO GIVEN BENADRYL AND ZOFRAN FOR C/O NAUSEA, PT CHANGED HER OWN COLOSTOMY BAG, STOMA AND SURROUNDING SKIN APPEARS WNL, SMALL AMT STOOL 5ML DRAINED, PLAN OF CARE REVIEWED, PT TO DC HOME TOMORROW WITH HOMEHEALTH IV ABX, PT AGREES WITH PLAN, WILL START NEW IV LATER
--- NOTE | 2017-08-23 19:20 | NUR ---
REPORT GIVEN TO COMPLIANCE MANAGER NURSE, PT IN STABLE CONDITION.
--- NOTE | 2017-08-23 19:28 | NUR ---
RECEIVED REPORT FROM MARCOS AGUILA. PT IN STABLE CONDITION, SITTING UP IN BED AOX4 SIDE RAILS UP AND BED IN LOW POSITION CALL BUSCH IN REACH. PT HAS NO COMPLAINTS AT THIS TIME.
[2017-08-23 20:00] VITALS: BP 112/62
--- NOTE | 2017-08-23 20:40 | NUR ---
POSITIVE EFFECT NOTED FOR PRN MORPHINE . PT IN BED, A0X4, WITH BED IN LOWEST POSITION CALL BUSCH IN REACH AND COMMODE NEARBY. IV SITE FLUSHED PATENT AND D5 AND .45 NACL RUNNING ORDERED. Addendum: 08/23/17 at 5526 by Charmaine Potter RN PT WAS NOT GIVEN MORPHINE AT THIS TIME . PT GIVEN PRN MORPHINE AT 0. PT SAID PAIN WAS 6/10 BUT WAS WAITING FOR HER PRN MORPHINE TO BE DUE. PT HOB UP SHE IS ALERT AND ORIENTED IV SITE PATENT
--- NOTE | 2017-08-23 21:10 | NUR ---
PT C/O PAIN WAS 8/10 PT GIVEN PRN MORPHINE UPON REQUEST WILL CONTINUE TO MONITOR FOR EFFECT.
--- NOTE | 2017-08-23 22:20 | NUR ---
PT GIVEN PRN BENADRYL FOR C/O OF ITCHING.
--- NOTE | 2017-08-24 00:33 | NUR ---
PT AMBULATED TO COMMODE THEN BACK TO BED AGAIN. V/S AT THIS TIME T 98.9 P 78 R 18 B/P 115/66 02 97% R/A. PT SAID THAT SHE WAS HAVING PAIN IN HER LEG AND ARM FROM THE INFECTED PICC LINE. BUT SHE HAS WANTS TO WAIT FOR HER PRN MORPHINE TO BE DUE. PT SITING UP IN BED AWAKE AND ALERT WITH BED LOW AND CALL BUSCH IN REACH.
[2017-08-24] MEDS: MORPHINE SULFATE 4 MG/ML SYR IVP PRN ×4 (02:07→17:54)
[2017-08-24] MEDS: diphenhydrAMINE 50 MG/ML VIAL IVP PRN ×4 (02:59→17:52)
[2017-08-24 06:44] LABS: BASOPHILS % (AUTO) 0.5 % (0.0-2.0); EOSINOPHILS # (AUTO) 0.4 K/uL (0-0.4); HEMATOCRIT 29.7 % (36-48); HEMOGLOBIN 9.9 g/dL (12.0-16.0); LYMPHOCYTES # (AUTO) 1.5 K/uL (2.5-16.5); MEAN CORPUSCULAR HEMOGLOBIN 29 pg (27-31); MEAN CORPUSCULAR HGB CONC 33 g/dL (33-37); MEAN CORPUSCULAR VOLUME 85.1 fL (80-94); MONOCYTES # (AUTO) 0.5 K/uL (0.8-1.0); MONOCYTES % (AUTO) 10.3 % (1.7-9.3); NEUTROPHILS # (AUTO) 2.3 K/uL (1.8-7.7); NEUTROPHILS % (AUTO) 49.2 % (42.2-75.2); PLATELET COUNT (AUTO) 354 K/uL (140-450); RED BLOOD CELL COUNT(AUTO) 3.49 MIL/uL (4.20-5.40); RED CELL DISTRIBUTION WIDTH 13.9 % (11.6-13.7); WHITE BLOOD COUNT (AUTO) 4.7 K/uL (4.8-10.8)
[2017-08-24] MEDS: PANTOPRAZOLE 40 MG TABEC PO SCH ×2 (06:49→16:03)
--- NOTE | 2017-08-24 06:52 | NUR ---
PT SITTING UP IN BED POSITVE EFFECT OF PAIN MEDS NOTED PT STATES MEDICATION HAS HELPED. IV RUNNING DW5 AND 1/2NS ORDERED IV SITE FLUSHED PATENT. BED LOW SIDE RAILS UP AND CALL BEL IN REACH.
[2017-08-24 06:58] LABS: ANION GAP 10.5 (8-16); CARBON DIOXIDE 28.1 mmol/L (21-32); CREATININE 0.8 mg/dL (0.6-1.3); POTASSIUM 3.6 mmol/L (3.5-5.1)
--- NOTE | 2017-08-24 07:38 | NUR ---
TRANSFER OF CARE TO [facility] NURSE JERICA AGUILA. PT IN STABLE CONDITION. BED LOW CALL BUSCH IN REACH
--- NOTE | 2017-08-24 07:43 | NUR ---
RECEIVED REPORT FROM CHRISTIAN SCIENCE READER NURSE ABOUT THE PT. PT IS AWAKE AND LYING ON THE BED WITH AN IV LINE AT RIGHT FA G. 22, D5W AT 75ML/HR, INTACT. SIDE RAILS ARE UP AND CALL LIGHT WITHIN REACH. NO SIGN OF DISTRESS NOTED. WILL CONTINUE TO MONITOR.
[2017-08-24 08:00] VITALS: BP 110/70
--- NOTE | 2017-08-24 08:05 | NUR ---
PT IS AWAKE AND IN A SITTING POSITION ON THE BED, VITAL SIGN TAKEN AND NO SIGN OF DISTRESS NOTED. CALL LIGHT WITHIN REACH AND WILL CONTINUE TO MONITOR.
[2017-08-24] MEDS: ENOXAPARIN 40 MG/0.4 ML SYR SUBQ SCH (09:20)
--- NOTE | 2017-08-24 10:30 | NUR ---
PT IS ASLEEP ON THE BED, CALL LIGHT WITHIN REACH, COLOSTOMY BAG INTACT AND CLEAN, SIDE RAILS ARE UP AND NO SIGN OF DISTRESS NOTED. WILL CONTINUE TO MONITOR.
--- NOTE | 2017-08-24 10:58 | NUR ---
Dosier Operator Notes: I call [facility] and Spoke to En at per Radha [facility] will be providing nursing staff as of 08/25/17. I call [facility] and spoke to dominique to very patient information and scheduled home health services for tomorrow. ed case manager Mariama is aware.
--- NOTE | 2017-08-24 11:11 | NUR ---
Gas Torch Solderer Notes: I call [facility] again and spoke to Nikolas to inform him of patient been discharged with Peripheral, no picc line.
[2017-08-24] MEDS: DEXT 5% / NACL 0.45% 1,000 ML IV SCH (12:04)
--- NOTE | 2017-08-24 12:09 | NUR ---
PT IS AWAKE AND LUNCH WAS SERVED BUT PT IS STILL NOT EATING, VERBALIZED A PAIN RATE OF 10/10 SO THE PT WAS MEDICATED AND MADE COMFORTABLE. NO SIGN OF DISCOMFORT NOTED, CALL LIGHT WITHIN REACH AND WILL CONTINUE TO MONITOR.
[2017-08-24 16:00] VITALS: BP 125/75
--- NOTE | 2017-08-24 16:35 | NUR ---
PT IS AWAKE AND VITALS SIGNS TAKEN, NO SIGN OF DISTRESS NOTED. WILL MONITOR.
--- NOTE | 2017-08-24 17:52 | NUR ---
PT IS AWAKE AND LYING ON THE BED, PAIN MEDICATIONS GIVEN AND PT TOLERATED IT. NO SIGN OF DISTRESS NOTED. WILL FACILITATE DISCHARGE PROCESS.
--- NOTE | 2017-08-24 19:15 | NUR ---
DISCHARGED PT VIA WHEELCHAIR WITH THE , ARM BANDS REMOVED AND DISCHARGE INSTRUCTIONS GIVEN. PT IS STABLE AT THIS TIME.
== END 2017-08-24 18:50 | disposition home health service (06) | DRG 720 ==
LOC: MED 13:54 → MTU 16:56
PROVIDERS: ADMIT Hospitalist; ATTEND Hospitalist
PROC: 02PYX3Z Removal of Infusion Device from Great Vessel, External Approach (ICD-10-PCS; 2017-08-18)
PROC: 0XJ Anatomical Regions, Upper Extremities, Inspection (ICD-10-PCS; principal; 2017-08-21)
DX: A41.9 Sepsis, unspecified organism (principal); C79.2 Secondary malignant neoplasm of skin; C79.89 Secondary malignant neoplasm of other specified sites; E44.0 Moderate protein-calorie malnutrition; C18.9 Malignant neoplasm of colon, unspecified; D64.9 Anemia, unspecified; I10 Essential (primary) hypertension; Z68.1 Body mass index [BMI] 19.9 or less, adult; G89.3 Neoplasm related pain (acute) (chronic); Z90.721 Acquired absence of ovaries, unilateral; Z93.3 Colostomy status; Z92.21 Personal history of antineoplastic chemotherapy; Z88.8 Allergy status to other drugs, medicaments and biological substances; Z79.899 Other long term (current) drug therapy; Z90.49 Acquired absence of other specified parts of digestive tract; Z87.440 Personal history of urinary (tract) infections; Z88.6 Allergy status to analgesic agent; Z88.1 Allergy status to other antibiotic agents
CPT/HCPCS: 36415; 71045; 80048; 80053; 81001; 81025; 83605; 83880; 84484; 85025; 85610; 86886; 86900; 86901; 87040; 87070; 87081; 87086; 93005; 96361; 96365; 96375; 96376; 99285; C1751; J0690; J0696; J1200; J1650; J2270; J2405; J3490; J7030; J7060; Q0092